=== PATIENT | female | born 1960 | race Two or more races ===

== ENCOUNTER 2020-06-17 13:31 | Outpatient (REF) | payer OTHER, SELFPAY ==
--- NOTE | 2020-06-17 13:37 | MM_ITS ---
EXAMINATION: MM SCREENING DIGITAL BREAST TOMOSYNTHESIS, BILATERAL CLINICAL INFORMATION: Screening. Asymptomatic. The lifetime risk of breast cancer based on the Tyrer-Cuzick Model is 9%. COMPARISON: Mammography: 12/06/2017, outside exam 06/09/2016 ([facility]). TECHNIQUE: Digital breast tomosynthesis is performed in both the craniocaudal and mediolateral oblique views along with computer-aided detection (CAD). Synthesized 2D images are generated from the tomosynthesis. FINDINGS: The breasts are almost entirely fatty (ACR BI-RADS breast composition Category a). There are no significant masses, abnormal calcifications, or other abnormalities. Background stromal densities are stable. The axilla and skin contours are unremarkable. MM/MM tomosynthesis screening BI IMPRESSION: No mammographic evidence of malignancy. ASSESSMENT: BI-RADS 1: Negative RECOMMENDATION: Routine annual mammography screening. This patient's information was entered into a reminder system with a target due date for their next mammogram.
== END 2020-06-17 13:32 | disposition home or self-care (01) ==
LOC: HO.MAMMO 13:31
PROVIDERS: PCP Internal Medicine; Visit Provider Internal Medicine
DX: Z12.31 Encounter for screening mammogram for malignant neoplasm of breast (principal)
CPT/HCPCS: 77063; 77067

== ENCOUNTER 2020-11-18 11:05 | Outpatient (REF) | payer OTHER, SELFPAY ==
--- NOTE | ~2020-11-18 | US_ITS ---
EXAMINATION: US VENOUS WITH DOPPLER UPPER EXTREMITY, LEFT CLINICAL INFORMATION: Pain COMPARISON: None TECHNIQUE: Ultrasound of the upper extremity is performed using compression sonography and color and pulse Doppler flow with assessment of augmentation of flow. There is also imaging and Doppler assessment of the jugular and subclavian veins. Spectral analysis with color-flow imaging is performed. FINDINGS: Respiratory variation, normal compression, and augmented flow are noted throughout the upper extremity including the axillary, brachial, cubital, and radial and ulnar veins. There is normal flow in the internal jugular and subclavian veins. There is no visible deep or superficial thrombophlebitis. US/US venous duplex UE LT IMPRESSION: No DVT demonstrated in the left upper extremity.
== END 2020-11-18 11:06 | disposition home or self-care (01) ==
LOC: HO.US 11:05
PROVIDERS: Absent Provider Internal Medicine; PCP Internal Medicine; Visit Provider Internal Medicine
DX: M79.602 Pain in left arm (principal)
CPT/HCPCS: 93971

== ENCOUNTER 2020-12-01 07:46 | Outpatient (REF) | payer OTHER, SELFPAY ==
--- NOTE | ~2020-12-01 | XR_ITS ---
EXAMINATION: XR ELBOW, LEFT CLINICAL INFORMATION: Pain COMPARISON: None TECHNIQUE: AP, lateral, and oblique views of the left elbow. FINDINGS: Bone alignment is normal. No fracture or dislocation is seen. The joint spaces are normal. There is no joint effusion. There is a small osteophyte projecting over the lateral humeral epicondyle questionable for changes from lateral epicondylitis. XR/XR elbow LT min 3V IMPRESSION: Small osteophyte projecting off the lateral humeral epicondyle questionable for changes of lateral epicondylitis.
== END 2020-12-01 07:47 | disposition home or self-care (01) ==
LOC: HO.HOSX 07:46
PROVIDERS: Visit Provider Physician Assistant
DX: M25.822 Other specified joint disorders, left elbow (principal)
CPT/HCPCS: 73080

== ENCOUNTER 2021-02-11 10:22 | Outpatient (REF) | payer OTHER, SELFPAY ==
--- NOTE | 2021-02-11 10:25 | EMG_ITS ---
This is a 60-year-old woman with a history of diabetes, hypertension, and depression, who has generalized body pain and increase in pain in the last 2 months. CURRENT MEDICATIONS: Metformin, hydrochlorothiazide, Cymbalta, gabapentin, and amlodipine. PHYSICAL EXAMINATION: She is alert and oriented with normal intellectual functions. Cranial nerves II through XII are normal. She is generally tender. Nonfocal examination. IMPRESSION: Fibromyalgia, rule out peripheral neuropathy. Nerve conduction EMG study: Normal electrodiagnostic study of both upper extremities with no evidence of carpal tunnel syndrome or generalized peripheral neuropathy. Normal EMG of the left C5-T1 innervated muscles. MD ANTOINE Sarmiento/BYRON / [id number] MTDD
== END 2021-02-11 10:23 | disposition home or self-care (01) ==
LOC: HO.NEURO 10:22
PROVIDERS: PCP Internal Medicine; Visit Provider Physician Assistant
DX: M25.822 Other specified joint disorders, left elbow (principal)
CPT/HCPCS: 95885; 95913

== ENCOUNTER 2021-02-24 11:33 | Outpatient (REF) | payer OTHER, SELFPAY ==
--- NOTE | ~2021-02-24 | XR_ITS ---
EXAMINATION: XR WRIST, LEFT CLINICAL INFORMATION: Pain COMPARISON: None TECHNIQUE: Four views of the left wrist. FINDINGS: The bones and soft tissues are normal. No fracture. Alignment is anatomic with normal joint spaces. No erosions or abnormal soft tissue calcifications. XR/XR wrist LT min 3V IMPRESSION: Normal left wrist.
== END 2021-02-24 11:34 | disposition home or self-care (01) ==
LOC: HO.XRAY 11:33
PROVIDERS: PCP Internal Medicine; Visit Provider Internal Medicine
DX: M25.532 Pain in left wrist (principal)
CPT/HCPCS: 73110

== ENCOUNTER → 2021-02-27 12:56 | Outpatient (BNVA) | payer OTHER, SELFPAY | PROVIDERS: Visit Provider Physician Assistant ==

== ENCOUNTER → 2021-04-03 09:52 | Outpatient (BNVA) | payer OTHER, SELFPAY | PROVIDERS: PCP Internal Medicine; Visit Provider Nurse Practitioner Family ==

== ENCOUNTER → 2021-05-08 10:01 | Outpatient (BNVA) | payer MEDICAID, SELFPAY | PROVIDERS: PCP Internal Medicine; Visit Provider Nurse Practitioner Family | DX: M79.7 Fibromyalgia (principal); M35.3 Polymyalgia rheumatica; M53.3 Sacrococcygeal disorders, not elsewhere classified; E11.9 Type 2 diabetes mellitus without complications; I10 Essential (primary) hypertension; E78.5 Hyperlipidemia, unspecified; Z88.8 Allergy status to other drugs, medicaments and biological substances; Z91.013 Allergy to seafood; Z79.52 Long term (current) use of systemic steroids | CPT/HCPCS: 99212 ==

== ENCOUNTER 2022-01-13 10:50 | Outpatient (REF) | payer MEDICAID, SELFPAY ==
[2022-01-13 11:47] LABS: Estimated Average Glucose 114 mg/dL; Hemoglobin A1c % 5.6 %
[2022-01-13 12:24] LABS: Anion Gap 12 (12-20); Blood Urea Nitrogen 26 mg/dL (9-16); Calcium 9.8 mg/dL (8.4-10.2); Carbon Dioxide 28 mmol/L (22-29); Chloride 106 mmol/L (96-108); Estimated Glomerular Filt Rate > 60; Glucose Random 76 mg/dL (60-115); Potassium 4.2 mmol/L (3.3-5.1); Sodium 142 mmol/L (135-145)
[2022-01-13 12:44] LABS: Folate 8.2 ng/mL (> or = 4.0); Vitamin B12 411 pg/mL (200-900)
[2022-01-13 12:53] LABS: Erythrocyte Sedimentation Rate 8 MM/HR (0-20)
== END 2022-01-13 10:51 | disposition home or self-care (01) ==
LOC: HO.LAB 10:50
PROVIDERS: PCP Internal Medicine; Visit Provider Psychiatry & Neurology Neurology
DX: G62.9 Polyneuropathy, unspecified (principal)
CPT/HCPCS: 36415; 80048; 82550; 82607; 82746; 83036; 85652; 86140

== ENCOUNTER 2023-09-02 09:05 | Outpatient (REF) | payer MEDICARE, MEDICAID, SELFPAY ==
[2023-09-02 12:05] LABS: Alanine Aminotransferase 29 U/L (0-31); Albumin Level 4.1 g/dL (3.5-5.0); Alkaline Phosphatase 87 U/L (39-117); Anion Gap 15 (12-20); Aspartate Amino Transferase 19 U/L (5-31); Bilirubin Total 0.6 mg/dL (0.0-1.0); Blood Urea Nitrogen 14 mg/dL (9-16); Calcium 9.8 mg/dL (8.4-10.2); Carbon Dioxide 28 mmol/L (22-29); Chloride 104 mmol/L (96-108); Cholesterol 153 mg/dL (<200); Estimated Glomerular Filt Rate > 60; Glucose Random 103 mg/dL (60-115); HDL Cholesterol 54 mg/dL (>40); LDL Cholesterol Calculated 78 mg/dL (<100); Magnesium 1.8 mg/dL (1.6-2.6); Potassium 3.9 mmol/L (3.3-5.1); Sodium 143 mmol/L (135-145); Total Protein 7.3 g/dL (6.5-8.0); Triglycerides 106 mg/dL (<150)
[2023-09-02 12:32] LABS: Folate 13.1 ng/mL (> or = 4.0); Vitamin B12 590 pg/mL (200-900)
== END 2023-09-02 09:06 | disposition home or self-care (01) ==
LOC: HO.HHCL 09:05
PROVIDERS: Visit Provider Nurse Practitioner Family
DX: Z00.00 Encounter for general adult medical examination without abnormal findings (principal); E78.2 Mixed hyperlipidemia; R79.0 Abnormal level of blood mineral; E11.00 Type 2 diabetes mellitus with hyperosmolarity without nonketotic hyperglycemic-hyperosmolar coma (NKHHC)
CPT/HCPCS: 36415; 80053; 80061; 82607; 82746; 83735

== ENCOUNTER 2023-09-29 08:41 | Outpatient (REF) | payer MEDICARE, SELFPAY | END 2023-09-29 08:42 | disposition home or self-care (01) | LOC: HO.MAMMO 08:41 | PROVIDERS: PCP Nurse Practitioner Family; Visit Provider Nurse Practitioner Family | DX: Z12.31 Encounter for screening mammogram for malignant neoplasm of breast (principal) | CPT/HCPCS: 77063; 77067 ==

== ENCOUNTER → 2023-09-29 09:00 | Outpatient (BNV) | payer MEDICARE, SELFPAY | PROVIDERS: PCP Nurse Practitioner Family; Visit Provider Radiology Diagnostic Radiology | DX: Z12.31 Encounter for screening mammogram for malignant neoplasm of breast (principal) | CPT/HCPCS: 77063; 77067 ==

== ENCOUNTER 2024-05-01 08:53 | Outpatient (AMB) | payer MEDICARE, SELFPAY ==
--- NOTE | 2024-05-01 08:48 | MHC.OFFVIS ---
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 No complaints. Last Pap/HPV ? Last Mammogram was BI-RADS 1 in 10/11 Last Colonoscopy was 1 and half years ago at [facility] History Hyperlipidemia Fibromyalgia Tinea versicolor Depression Gastroesophageal reflux Vitiligo Hypertension Diabetes Surgical History Hx of tubal ligation Family History Father HTN (hypertension) Mother HTN (hypertension) Diabetes Sister Colon cancer Paternal Aunt Breast cancer Social History Household Members: Significant Other and Children Housing: House Alcohol intake: current Alcohol intake frequency: holidays/special occasions only Patient Tobacco Use Status: Never used Tobacco Current occupational status: unemployed Sexual orientation: Straight/Heterosexual Gender identity: Female Female Reproductive History Menstrual Menopause type: natural Age of menopause: 52 Total pregnancies: 3 Full term: 3 Number of Living Children: 3 Date of Mammogram: 09/29/23 Review of Systems Const All systems reviewed & are unremarkable except as noted in HPI and below Card Reports as per HPI Resp Reports as per HPI GI Reports as per HPI and Reports no additional complaints Reports as per HPI Physical Exam Vital Signs: Last Vital Signs BP 130/86 05/01/24 08:54 BMI result Body Mass Index 31.8 Const General: cooperative, healthy appearing and comfortable Chest Chest palpation & inspection: normal inspection of the chest and normal palpation of entire chest wall Breast/axilla inspection: normal inspection of the breasts and normal inspection of the axillae Breast/axilla palpation: normal palpation of the breasts, normal palpation of the axillae and no axillary lymphadenopathy Resp Effort & Inspection: normal respiratory effort Auscultation: clear to auscultation bilaterally Percussion: percussion normal Cardio Palpation: normal PMI Rate: regular rate Rhythm: regular rhythm Heart sounds: no murmurs and no rubs Peripheral pulses: Peripheral pulses 2+ throughout GI Inspection: Yes normal to inspection Palpation (GI): Soft to palpation, nontender, no guarding, not rigid and No hepatosplenomegaly present Percussion: Yes normal to percussion Auscultation: normal bowel sounds Rectal Exam - Female: deferred General: Yes bladder normal to palpation External Female Exam: No lesion Speculum Exam - Vagina: normal appearance of the vagina, normal palpation, normal vaginal discharge and not erythematous Speculum Exam - Cervix: normal appearance of the cervix and normal palpation Bimanual exam- vagina & uterus: normal bimanual exam, normal palpation, uterine size normal, bladder normal to palpation, consistency normal and normal palpation Bimanual Exam- Adnexa, other: normal adnexae, no masses and no tenderness Assessment & Plan Assessment & Plan (1) Well woman exam: Code(s): Z01.419 - Encounter for gynecological examination (general) (routine) without abnormal findings Category: Medical Plan: Co testing done. Counseled the patient about the recommended dietary allowance of 1200 mg of Calcium & 600 IU of vitamin D. Instructions given the patient to schedule next screening Mammogram in 10/12 The patient was instructed to perform monthly self-breast exams and schedule annual exam in a year. All questions answered and the patient verbalized understanding. Coding Level of Care Code New Pt Prev Care 40-64y(03904) Diagnoses Well woman exam Z01.419
[2024-05-01 08:54] VITALS: BP 130/86; BMI 31.8
== END 2024-05-01 09:20 | disposition home or self-care (01) ==
PROVIDERS: PCP Nurse Practitioner Family; Visit Provider Obstetrics & Gynecology
DX: Z01.419 Encounter for gynecological examination (general) (routine) without abnormal findings (principal)
CPT/HCPCS: 99386

== ENCOUNTER 2024-05-01 08:53 | Outpatient (REF) | payer MEDICARE, SELFPAY ==
[2024-05-01 13:48] LABS: HPV 16,18/45 See PAP report
== END 2024-05-01 08:54 | disposition home or self-care (01) ==
LOC: HO.LNP 08:53
PROVIDERS: PCP Nurse Practitioner Family; Visit Provider Obstetrics & Gynecology
DX: Z01.419 Encounter for gynecological examination (general) (routine) without abnormal findings (principal)
CPT/HCPCS: 87624; 88175; 99386

== ENCOUNTER 2024-06-15 09:57 | Outpatient (REF) | payer MEDICARE, SELFPAY ==
[2024-06-15 12:28] LABS: Anion Gap 12 (12-20); Blood Urea Nitrogen 12 mg/dL (9-16); Calcium 8.9 mg/dL (8.4-10.2); Carbon Dioxide 28 mmol/L (22-29); Chloride 105 mmol/L (96-108); Cholesterol 212 mg/dL (<200); Estimated Glomerular Filt Rate > 60; Glucose Random 112 mg/dL (60-115); HDL Cholesterol 45 mg/dL (>40); LDL Cholesterol Calculated 119 mg/dL (<100); Potassium 3.6 mmol/L (3.3-5.1); Sodium 141 mmol/L (135-145); TSH reflex Free T4 2.98 uIU/mL (0.32-4.0); Triglycerides 243 mg/dL (<150)
[2024-06-15 12:41] LABS: Folate 13.6 ng/mL (> or = 4.0); Vitamin B12 379 pg/mL (200-900)
[2024-06-15 12:42] LABS: Reflex LDLD? No
== END 2024-06-15 09:58 | disposition home or self-care (01) ==
LOC: HO.HHCL 09:57
PROVIDERS: Visit Provider Internal Medicine
DX: I10 Essential (primary) hypertension (principal); E78.2 Mixed hyperlipidemia; M35.3 Polymyalgia rheumatica
CPT/HCPCS: 36415; 80048; 80061; 82607; 82746; 84443

== ENCOUNTER 2024-10-04 09:08 | Outpatient (REF) | payer MEDICARE, SELFPAY ==
--- OUTSIDE RECORDS SUMMARY | 2024-10-04 10:02 | XMS_ITS | Clinical Summary ---
Author Organization [employer] Address [address] [facility] [address] [place] [address] Care Team Providers Care Bag Sewer Name Role Phone Justine Buenrostro MD Primary Care Provider + Allergies Active Allergy Reactions Criticality Noted Date Comments Anselmo Inhibitors Cough 12/12/2018 Celecoxib Hives 08/17/2023 Shellfish Allergy 10/31/2023 Medications albuterol (2.5 MG/3ML) 0.083% nebulizer solution Inhale 3 mL every 8 (eight) hours. 022 Active gabapentin (Neurontin) 600 MG tabletIndications: Fibromyalgia TAKE 2 TABLETS BY MOUTH AT BEDTIME 60 tablet 3 023 Active EPINEPHrine (Epipen) 0.3 MG/0.3ML injection syringeIndications :Allergic reaction, subsequent encounter INJECT 0.3MG ONE TIME IF NEEDED FOR ANAPHYLAXIS FOR UP TO 1 DOSE. INJECT INTO UPPER LEG. CALL 911 AFTER USE. 2 each 1 024 Active FreeStyle lancetsIndications :Type 2 diabetes mellitus with hyperosmolarity without coma, without long-term current use of insulin ([facility]) 1 each by Other route in the morning. 100 each 3 024 Active Aspirin Low Dose 81 MG EC tabletIndications: Type 2 diabetes mellitus with unspecified complications (CMS/HCC) TOME JOLENE TABLETA (81 MG) POR VIA ORAL EN LA MANANA 90 tablet 1 024 Active glucose blood (OneTouch Verio) test stripIndications:T ype 2 diabetes mellitus with hyperosmolarity without coma, without long-term current use of insulin (CMS/HCC) USE TO TEST BLOOD SUGAR EVERY MORNING 100 each 11 024 2024 Active Blood Glucose Monitoring Suppl (CityblisTouch Verio) w/Device kitIndications:Typ e 2 diabetes mellitus with hyperosmolarity without coma, without long-term current use of insulin ([facility]) USE TO TEST BLOOD SUGAR EVERY MORNING 1 kit Active OneTouch Delica Lancets 33G miscIndications:Ty pe 2 diabetes mellitus with hyperosmolarity without coma, without long-term current use of insulin ([facility]) USE TO TEST BLOOD SUGAR EVERY MORNING 100 each 11 Active hydroCHLOROthiazid e (HYDRODiuril) 50 MG tablet TAKE 1 TABLET BY MOUTH EVERY DAY 90 tablet 1 Active cetirizine (ZyrTEC) 10 MG tablet TAKE 1 TABLET BY MOUTH EVERY DAY 90 tablet 1 Active Omeprazole 20 MG tablet delayed-release Take 1 tablet (20 mg) by mouth Once per day. 90 tablet Active Breo Ellipta 200-25 MCG/ACT aerosol powder Inhale 1 Inhalation Once per day. Active atorvastatin (Lipitor) 20 MG tablet Take 1 tablet (20 mg) by mouth at bedtime. TOME JOLENE TABLETA TODOS LOS CUBA 30 tablet 11 Active tiZANidine (Zanaflex) 4 MG tablet Take 1 tablet (4 mg) by mouth at bedtime. 30 tablet 025 2024 Active acetaminophen (Tylenol 8 Hour) 650 MG ER tablet Take 1 tablet (650 mg) by mouth every 8 (eight) hours if needed for mild pain or moderate pain. Do not crush, chew, or split. 30 tablet 025 2024 Active losartan (Cozaar) 100 MG tablet Take 1 tablet (100 mg) by mouth Once per day. 30 tablet 3 Active metFORMIN (Glucophage) 500 MG tablet TAKE 1 TABLET BY MOUTH TWICE A DAY 180 tablet 1 Active losartan (Cozaar) 100 MG tablet Take 1 tablet by mouth at bed time. 022 2024 Discontinued(R eorder (will not trigger notification to Pharmacy)) predniSONE (Deltasone) 5 MG tablet TOME JOLENE TABLETA TODOS LOS D CON ALIMENTO 023 2024 Discontinued(T herapy completed) amLODIPine (Norvasc) 10 MG tablet TOME JOLENE TABLETA TODOS LOS CUBA 90 tablet 1 023 2024 Discontinued(N on-compliance) atorvastatin (Lipitor) 10 MG tablet TOME JOLENE TABLETA TODOS LOS CUBA 90 tablet 1 024 2024 Discontinued(R eorder (will not trigger notification to Pharmacy)) metFORMIN (Glucophage) 500 MG tablet TOME 1 TABLETA POR VIA ORAL DOS VECES [place] 180 tablet 1 024 2024 Discontinued Active Problems Problem Noted Date Diagnosed Date Sprain of groin 09/14/2024 Assessment & Plan (09/14/2024 3:19 PM EDT): Referred to PT Apply heat to affected area and take Tylenol as needed Chronic bilateral low back pain with right-sided sciatica 09/14/2024 Assessment & Plan (09/14/2024 3:16 PM EDT): Most 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 Follow-up in 3 to 4 months or earlier as needed Advised to come to acupuncture clinic Polymyalgia rheumatica 06/15/2024 Assessment & Plan (06/15/2024 10:39 AM EST): Probably uncontrolled, she sees Rheumatology, new referral sent. She was previously on Prednisone, may need to be on MTS or other biological agent. FU with Rheumatology. Type 2 diabetes mellitus wit h hyperglycemia, without long-term current use of insulin 06/15/2024 Assessment & Plan (09/14/2024 3:15 PM EDT): Controlled. Last A1c on 05/2024 was at goal. Continue on metformin Counseled re more frequent low calorie/carb meals. Check fgstk 1X daily Encouraged physical activity as tolerated. FU in 3 to 4 months months. Asthma 10/31/2023 Assessment & Plan (09/14/2024 3:13 PM EDT): She is doing well on Breo inhaler. Use albuterol as needed has exacerbation, declined COVID immunization, otherwise influenza and other adult immunizations are up-to-date. Follow-up with me in 6 months Assessment & Plan (06/15/2024 2:23 PM EST): Seems to be controlled, she should be on Breo only, as per allergy office. FU w resource development director Cervical pain (neck) 10/31/2023 Foot pain 10/31/2023 Mixed anxiety depressive disorder 10/31/2023 Overview (10/31/2023): Depression Care plan up dated--- 04/05/12 Assessment & Plan (09/14/2024 3:19 PM EDT): PHQ-9 is 8, she declined psychotherapy referral. We discussed importance of increased exercise, healthy lifestyle and coping mechanisms with anxiety and depression. She will continue gabapentin nightly for anxiety and insomnia in 2 months and states she was started SSRIs/SNRIs like venlafaxine or duloxetine had a good profile with patient with fibromyalgia. Patient has crisis number, she feels safe at home and is able to reach out for safety. Chronic depression 10/31/2023 Allergic reaction 08/17/2023 Assessment & Plan (11/07/2023 7:09 PM EDT): -epipen prescribed for emergent use should she experience such reaction again -referral to resource development director placed for testing -patient advised discontinue use of celebrex and contract prescribing provider for alternative pain management -ED precautions reviewed Vitiligo 11/16/2018 Hyperlipidemia 01/03/2018 Assessment & Plan (09/14/2024 3:17 PM EDT): Last LDL was at goal. Continue Atorvastatin 20 mg, FU lipids in 6 months and add medications for TG if needed Recommended moderate amount of exercise and increase consumption of fruit, vegetables, fish and high fiber foods. Should decrease consumption of highly saturated fats or trans fats. Assessment & Plan (06/15/2024 9:36 AM EST): Last LDL was at goal. Continue Atorvastatin, FU lipids in August 2024. Recommended moderate amount of exercise and increase consumption of fruit, vegetables, fish and high fiber foods. Should decrease consumption of highly saturated fats or trans fats. Hypopigmentation 01/03/2018 Fibromyalgia 10/31/2017 Gastroesophageal reflux disease 10/31/2017 Assessment & Plan (06/15/2024 10:44 AM EST): Advised to have small infraction meals, weight reduction. Use Omeprazole PRN only, discussed with her the potential side effects including vitamin deficiencies. Check vitamin B levels. Major depressive disorder 10/31/2017 Pityriasis versicolor 10/31/2017 Seasonal allergies 10/31/2017 HTN (hypertension), benign 09/12/2017 Assessment & Plan (09/14/2024 3:14 PM EDT): Uncontrolled, she is off amlodipine and losartan. I will restart losartan 100 mg only and follow-up BP in 4 to 6 weeks. Continue HCTZ, will add amlodipine if needed at next appointment Advised regarding weight reduction, cut down on soda and sugary drinks, increase exercise Assessment & Plan (06/15/2024 10:41 AM EST): Most likely uncontrolled, will FU in 3-4 weeks with labs. Continue Amlodipine + hydrochlorothiazide. Recommended to decrease soda and sugary beverage consumption, increase protein intake with meals (at least 1 portion of protein with each meal) to assist with satiety, increase dietary fiber. Recommended at least 150 min/week of moderate intensity exercise. Resolved Problems Problem Noted Date Diagnosed Date Resolved Date Type 2 diabetes mellitus wit h hyperosmolarity without coma, without long-term current use of insulin 09/12/2017 06/15/2024 Encounters Date Type Department Care Team Description 10/02/2024 Telephone [facility] [address] [place] [address] Justine Buenrostro MD December10/01/2024 Telephone [facility] [address] [place] [address] Justine Buenrostro MD Durable Medical Equipment 09/19/2024 Refill [facility] [address] [place] [phone] Justine Buenrostro MD 09/14/2024 10:30 AM EDT Office Visit [address] [address] Justine Buenrostro MD HTN (hypertension), benign (Primary Dx); Type 2 diabetes mellitus with hyperglycemia, without long-term current use of insulin ([facility]); Mixed hyperlipidemia; Mixed anxiety depressive disorder; Chronic bilateral low back pain with right-sided sciatica; Sprain of groin, initial encounter; Mild intermittent asthma without complication 09/14/2024 Travel 09/13/2024 Telephone [facility] [address] [place] [phone] Justine Buenrostro MD Chart prep 09/05/2024 Patient Outreach [address] [address] Justine Buenrostro MD Pre-visit Planning ((Unable to reach for PVP screening, LVM)) from Last 3 Months Immunizations Name Administration Dates Next Due Hep B, adult 08/31/2023,08/28/2019 INFLUENZA INJECTABLE QUADRIV ALANT CCIIV4 MDCK Multi-dose vial 03/21/2019 Influenza injectable quadriv alent preservative free 03/07/2018,03/07/2018,04/07/2017 Influenza, IIV3, injectable 04/15/2014, 3,03/16/2012 Influenza, seasonal, injecta ble, preservative free 06/15/2024 Pneumococcal Conjugate PCV 20 08/31/2023 Pneumococcal Polysaccharide PPSV23 04/03/2019 RSV Bivalent 09/13/2023 Tdap 04/03/2019,08/13/2011 Zoster, Recombinant 11/15/2023,09/13/2023 Family History Medical History Relation Name Comments COPD Father Breast cancer Father's Sister Stroke Maternal Grandmother Colon cancer Mother's Sister Throat cancer Paternal Grandfather Colon cancer Sister Relation Name Status Comments Father Father's Sister Maternal Grandmother Mother's Sister Paternal Grandfather Sister Social History Tobacco Use Types Packs/Day Years Used Date Smoking Tobacco: Never Smokeless Tobacco: Never Tobacco Cessation:Counseling Given: Not Answered Alcohol Use Standard Drinks/Week Comments Not Currently 0 (1 standard drink = 0.6 oz pur e alcohol) socially Depression Answer Date Recorded Patient Health Questionnaire-9 Score 8 09/14/2024 Patient Health Questionnaire-9 Score 8 09/14/2024 Last PHQ-9: Questionnaire Data Not on file 0 09/14/2024 Housing Stability Answer Date Recorded What is your housing situation today? I have ke ortega 04/11/[address] you li ve. Do you have problems with any of the following? None of the above 04/11/2023 Food Insecurity Answer Date Recorded Within the past 12 months, y ou worried that your food would run out before you got money to buy more: Never True 04/11/2023 Within the past 12 months,th e food you bought just didn't last and you didn't have enough money to get more: Never True Transportation Answer Date Recorded In the past 12 months, has l ack of transportation kept you from medical appts, meetings, work or from getting things needed for daily living? No 04/11/2023 Utilities Answer Date Recorded In the past 12 months, has t he electric, gas, oil or water company threatened to shut off services in your home? No 04/11/2023 Depression Answer Date Recorded Patient Health Questionnaire-2 Score 2 09/14/2024 Comments No Sex and Gender Information Value Date Recorded Sex Assigned at Female 04/19/2022 10:24 AM EDT Legal Sex Female 10:24 AM EDT Gender Identity Female 04/19/2022 10:24 AM EDT Sexual Orientation Choose not to disclose 2021 10:24 AM EDT Last Filed Vital Signs Vital Sign Reading Time Taken Comments Blood Pressure 160/100 09/14/2024 11:05 AM EDT Pulse 89 09/14/2024 10:37 AM EDT Temperature 36.3 ??C (97.4 ??F) 09/14/2024 10:37 AM E DT Respiratory Rate 12 06/15/2024 9:16 AM EST Oxygen Saturation 98% 09/14/2024 10:37 AM EDT Inhaled Oxygen Concentration - - Weight 83.6 kg (184 lb 4 oz) 09/14/2024 10:37 AM EDT Height 167.6 cm (5' 6 ) 09/14/2024 10:37 AM EDT Body Mass Index 29.74 09/14/2024 10:37 AM EDT Plan of Treatment Upcoming Encounters Date Type Department Care Team (Late st Contact Info) Description 12/31/2024 10:00 AM EDT Office Visit [facility] [address] [place] [address] Nikki Alejandra, OD [address] [place] [address] 01/01/2025 9:45 AM EDT Office Visit [facility] [address] [place] [address] Justine Buenrostro MD [address] [place] [address] Health Maintenance Due Date Last Done Comments CT Colonography 1960 FIT DNA/Cologuard 1960 FIT 1960 FOBT 1960 HIV Screening 1960 Sigmoidoscopy 1960 Eye Exam 1972 Alcohol/Substance Use Screening 1974 Hepatitis C Screening 1980 Diabetes: Urine Protein Screening 09/09/2023 09/08/2022, 02/24/2021, 03/06/2020 Hepatitis B Vaccines (3 of 3 - 19+ 3-dose series) 10/26/2023 08/31/2023, 08/28/2019 COVID-19 Vaccine ( season) 2024 11/03/2020, 10/06/2020 SDOH Screening 08/30/2024 08/31/2023 Diabetes: Foot Exam 11/20/2024 11/21/2023, 11/21/2023, 11/21/2023, Additional history exists Diabetes: Hemoglobin A1C 12/14/202406/15/ 024, 08/31/2023, 09/08/2022, Additional history exists Colonoscopy 03/11/2025 03/11/2022 Colorectal Cancer Screening 03/11/2025 Lipid Panel 06/15/2025 06/15/2024, 08/18, 09/08/2022, Additional history exists Depression Screening 09/14/2025 09/14/2024, 09/15/19 Tobacco Screening 09/14/2025 09/14/2024 Mammogram 09/28/2025 09/29/2023, 05/21, 12/09/2017 DTaP/Tdap/Td Vaccines (3 - Td or Tdap) 04/03/2029 04/03/2019, 08/13/2011 Cervical Cancer Screening 05/01/2029 HPV/Cotest 05/01/2029 Pap Smear 05/01/2029 05/01/2024 Pneumococcal Vaccine: 50+ Years Completed 08/31/2023, 04/03/2019 RSV Patients and Patients Aged 60 years or older Completed 09/13/2023 Zoster Vaccines Completed 11/15/2023, 09/13/2023 Influenza Vaccine Completed 06/15/2024, , 03/07/2018, Additional history exists HIB Vaccines Aged Out No longer eligi ble based on patient's age to complete this topic HPV Vaccines Aged Out No longer eligi ble based on patient's age to complete this topic Hepatitis A Vaccines Aged Out No long er eligible based on patient's age to complete this topic IPV Vaccines Aged Out No longer eligi ble based on patient's age to complete this topic Meningococcal Vaccine Aged Out No amanuel rudy eligible based on patient's age to complete this topic RSV under 20 months Aged Out No longe r eligible based on patient's age to complete this topic Rotavirus Vaccines Aged Out No longer eligible based on patient's age to complete this topic Procedures Procedure Name Priority Date/Time Associated Diagnosis Comments POCT GLUCOSE Routine 09/14/2024 10:39 AM EDT Type 2 diabetes mellitus with hyperglycemia, without long-term current use of insulin ([facility]) LIPID PANEL WITH REFLEX TO DIRECT LDL Routine 06/15/2024 9:58 AM EST Mixed hyperlipidemia POCT GLYCATED HEMOGLOBIN, TOTAL Routine 06/15/2024 9:17 AM EST Type 2 diabetes mellitus without complication, without long-term current use of insulin (CMS/HCC) PAP SMEAR Routine 05/01/2024 9:18 AM EST BI MAMMOGRAM SCREENING TOMOSYNTHESIS BILATERAL Routine 09/29/2023 9:04 AM EDT ALBUMIN, RANDOM URINE W/O CREATININE Routine 09/08/2022 11:32 AM EDT Type 2 diabetes mellitus with hyperosmolarity without coma, without long-term current use of insulin ([facility]) HM COLONOSCOPY Routine 03/11/2022 2:56 PM EDT from Last 3 Months or Most Recently Relevant to Health Maintenance Results * POCT Glucose (09/14/2024 10:39 AM EDT) Glucose Blood, POC 123 60 - 200 mg/dL QC Media Lot # [id number] Lot# Expiration Date 101,425 Blood Capillary blood specimen / Unknown 09/14/2024 10:39 AM EDT Justine Buenrostro MD POINT OF CARE TEST ENTER /EDIT ORDERABLES Final Result * (ABNORMAL) Lipid Panel with Reflex to Direct LDL (06/15/2024 9:58 AM EST) Triglycerides 243(H) <150 mg/dL [facility] Comment:Desirable Triglyceri de: less than 150 mg/dLBorderline High Triglyceride 150-199 mg/dLHigh Triglyceride: 200-499 mg/dLVery High Triglyceride: greater than or equal to 5OO mg/dL Cholesterol 212(H) <200 mg/dL [facility] Comment:Desirable Cholestero l: less than 200 mg/dLBorderline High Cholesterol: 200-239 mg/dLHigh Cholesterol: greater than 239 mg/dL LDL Cholesterol Calculated 119(H) <100 mg/dL [facility] Comment:Desirable LDL: less than 100 mg/dLNear Optimal/Above Optimal LDL: 110- 129 mg/dLBorderline High LDL: 130-159 mg/dLHigh LDL: 160-189 mg/dLVery High LDL: greater than or equal to 190 mg/dL HDL Cholesterol 45 >40 mg/dL [facility] Comment:Desirable HDL: great er than 40 mg/dL Note: This HDL assay may give artificially low results in patients with liver disease. Blood 06/15/2024 9:58 AM EST 06/15/2024 11:35 AM EST us Justine Buenrostro MD LAB BLOOD ORDERABLES Fin al Result [facility] [address] [place] [phone] * POCT HGB A1C (06/15/2024 9:17 AM EST) Hemoglobin A1C 6.0 4.0 - 6.0 % QC Media Lot # [id number] Lot# Expiration Date ,036 Blood 06/15/2024 9:17 AM EST Justine Buenrostro MD POINT OF CARE TEST ENTER /EDIT ORDERABLES Final Result * Pap Smear (05/01/2024 9:18 AM EST) 05/01/2024 9:18 AM EST 05/01/2024 1:40 PM EST Narrative [facility] - 05/07/2024 10:13 AM EST ----- ------- Name: MosesKlaudia Lary ? Age/Sex: 63/F ? : 1960 Unit#: [id number] ?? Attend Dr: Raghu Benz MD ?Re05/01/24 ?Status: DEP REF ? Location: HO.LNP ?Disch: ? ----- ------- SPEC : [id number] ?RECD: 05/01/24 ? STATUS: ??SOUT ? REQ NUM: [id number] ? DELANEY: 05/01/24 ? SUBM DR: Raghu Benz MD ? ENTERED: ??05/01/24 ?SP TYPE: Pap Smr ?OTHR DR: Sharita Ferro UNDERWRITING INTERN ? ORDERED: ??Pap Smear ? Interpretation ?? Satisfactory for evaluation. ?? Negative for intraepithelial lesion or malignancy. ?? No endocervical cells seen. ? HPV High Risk: ??Negative ? HPV Genotyping 16: ??Negative ?? HPV Genotyping 18: ??Negative ?Clinical Information LMP: Postmenopausal Previous PAP test: Three years ago, Unknown findings ? Material Received ?? ThinPrep-Cervical Copies To: ?? Sharita Ferro UNDERWRITING INTERN ?? [address] ?? [place] [address] ?? [phone] ?? Raghu Benz MD ?? [facility] ?? [address] ?? [place] [address] ?? [phone] ----- ------- Signed (signature on file) KJ Jerry (ASCP) 05/07/24 1013 ? ----- ------- ? END OF REPORT ? us Generic External Data Provider LAB CYTOLOGY IAN WILSON Final Result [facility] [address] [place] [phone] [phone] * BI Mammogram Screening Tomosynthesis Bilateral (09/29/2023 9:04 AM EDT) Anatomical Region Laterality Modality Breast Bilateral Mammography 09/29/2023 9:04 AM EDT Narrative 10/26/2023 9:58 AM EDT ? [facility] ? [address] ?[place] [address] ? Mammography Report ? Signed ? Patient: Moses,Klaudia M ?MR#: [id number] ?? [id number] ? : 1960 ?Acct:[id number] ? Age/Sex: 63 / F ?ADM Date: 09/29/23 ? Loc: HO.MAMMO ? Attending Dr: Sharita Ferro UNDERWRITING INTERN ? Ordering Physician: Sharita Ferro UNDERWRITING INTERN ?Results: 1Negativ ?? e ? Date of Service: 09/29/23 ?Follow Up: 1 Year From Orig ?? inal Mammogram ? Procedure(s): MM tomosynthesis screening BI ?? Accession Number(s): [id number] ? cc: Sharita Ferro UNDERWRITING INTERN ? EXAMINATION: ?? MM SCREENING DIGITAL BREAST TOMOSYNTHESIS, BILATERAL ? CLINICAL INFORMATION: ? Screening. Asymptomatic. ? COMPARISON: ?? Mammography: This study is compared with prior exams dating back to ?? 2018. ? TECHNIQUE: ?? Digital breast tomosynthesis is performed in both the craniocaudal and ?? mediolateral oblique views along with computer-aided detection (CAD). ?? Synthesized 2D images are generated from the tomosynthesis. ? FINDINGS: ?? The breasts are almost entirely fatty (ACR BI-RADS breast composition ?? Category a). ? There are no significant masses, abnormal calcifications, or other ?? abnormalities. ? MM/MM tomosynthesis screening BI ?? IMPRESSION: ?? No mammographic evidence of malignancy. ? ASSESSMENT: ? BI-RADS BI-RADS 1 - Negative ? RECOMMENDATION: ?? Routine annual mammography screening. ? 1 year F/U ? This examination should not preclude the clinical evaluation of a ?? suspicious palpable abnormality. ? This patient's information was entered into a reminder system with a ?? target due date for their next mammogram. ? Dictated By: ?Angeli Vance MD ? Signed By: ?<Electronically signed by Angeli Vance MD in OV> ? 10/26/23954 ? DD/ 0904 ? TD/TT: ? Head Doffer: ? Procedure Note Dondejuanisrraelwoodyter, Image - 10/26/2023 [facility] [address] [place] [address] Mammography Report Signed Patient: Klaudia Lopes MMR#: [id number] : 1960Acct:[id number] Age/Sex: 63 / FADM Date: 09/29/23 Loc: HO.MAMMO Attending Dr: Sharita Ferro UNDERWRITING INTERN Ordering Physician: Sharita Ferro NPResults: 1Negativ e Date of Service: 09/29/23Follow Up: 1 Year From Orig inal Mammogram Procedure(s): MM tomosynthesis screening BI Accession Number(s): [id number] cc: Sharita Ferro NP EXAMINATION: MM SCREENING DIGITAL BREAST TOMOSYNTHESIS, BILATERAL CLINICAL INFORMATION: Screening. Asymptomatic. COMPARISON: Mammography: This study is compared with prior exams dating back to 2018. TECHNIQUE: Digital breast tomosynthesis is performed in both the craniocaudal and mediolateral oblique views along with computer-aided detection (CAD). Synthesized 2D images are generated from the tomosynthesis. FINDINGS: The breasts are almost entirely fatty (ACR BI-RADS breast composition Category a). There are no significant masses, abnormal calcifications, or other abnormalities. MM/MM tomosynthesis screening BI IMPRESSION: No mammographic evidence of malignancy. ASSESSMENT: BI-RADS BI-RADS 1 - Negative RECOMMENDATION: Routine annual mammography screening. 1 year F/U This examination should not preclude the clinical evaluation of a suspicious palpable abnormality. This patient's information was entered into a reminder system with a target due date for their next mammogram. Dictated By: Angeli Vance MD Signed By: <Electronically signed by Angeli Vance MD in OV> 10/26/23954 DD/ 3 TD/TT: Head Doffer: Sharita Ferro [facility] BI PROCEDURES Final Result * Albumin, Random Urine W/O Creatinine (09/08/2022 11:32 AM EDT) Albumin, Urine 0.3 See Note: mg/dL [facility] [place] [facility] Comment: Reference Range: Reference Range Not established [facility] [place] [facility] Comment: The ADA defines abnormalities in albumin excretion as follows: Albuminuria Category ? Result (mcg/mg creatinine) Normal to Mildly increased ?<30 Moderately increased ?30-299 Severely increased ?> OR = 300 The ADA recommends that at least two of three specimens collected within a 3-6 month period be abnormal before considering a patient to be within a diagnostic category. Urine Urine specimen obtained by clean catch procedure / Unknown 09/08/2022 11:32 AM EDT 09/08/2022 11:33 AM EDT [facility] URINE ORDERABLES Final Resu lt [facility] [address] [place] [address] [facility] [place] [facility] [address] [place] [phone] * Hm Colonoscopy (03/11/2022 2:56 PM EDT) Colonoscopy Normal Normal Narrative [facility] - 03/11/2022 2:56 PM EDT Recommended 3 year follow up ( [facility]) unable to find path results updated per provider notes us Historical Provider HEALTH MAINTENANCE Edited Result - Final from Last 3 Months or Most Recently Relevant to Health Maintenance Insurance Care Teams Bag Sewer Relationship Specialty Start Date End Date Justine Buenrostro MD [address] [place] [address] PCP - General Internal Medicine 02/21/24
--- OUTSIDE RECORDS SUMMARY | 2024-10-04 10:02 | XMS_ITS | Encounter Summary ---
Author Organization [employer] Address 75 [facility] 7t [place] [address] Care Team Providers Care Clamshell Operator Name Role Phone Sharita Ferro Primary Care Provider [phone] Justine Buenrostro MD Primary Care Provider + Encounter Details Date Type Department Care Team (Late Contact Info) Description 12/01/2022 Abstract [facility] MEDICINE [address] [place], [place] [phone] Sharita Ferro FNP [address] [place] [address] Social History Tobacco Use Types Packs/Day Years Used Date Smoking Tobacco: Never Smokeless Tobacco: Never Alcohol Use Standard Drinks/Week Comments Not Currently 0 (1 standard drink = 0.6 oz pur e alcohol) Depression Answer Date Recorded Patient Health Questionnaire-9 Score 5 09/08/2022 Depression Answer Date Recorded Patient Health Questionnaire-2 Score 1 09/08/2022 Comments Unknown Sex and Gender Information Value Date Recorded Sex Assigned at Female 04/19/2022 10:24 AM EDT Legal Sex Female 10:24 AM EDT Gender Identity Female 04/19/2022 10:24 AM EDT Sexual Orientation Choose not to disclose 2021 10:24 AM EDT documented as of this encounter Plan of Treatment Upcoming Encounters Date Type Department Care Team (Late Contact Info) Description 12/31/2024 10:00 AM EDT Office Visit [facility] OPTOMETRY [address] [place], [place] [phone] Nikki Alejandra, OD 230 [place], [place] [phone] 01/01/2025 9:45 AM EDT Office Visit [facility] MEDICINE [address] [place] [address] Justine Buenrostro MD 230 [place] [address] documented as of this encounter Procedures Procedure Name Priority Date/Time Associated Diagnosis Comments COLONOSCOPY Routine 03/11/2022 2:56 PM EDT documented in this encounter Results * Hm Colonoscopy (03/11/2022 2:56 PM EDT) Colonoscopy Normal Normal Narrative Mine Ashton - 03/11/2022 2:56 PM EDT Recommended 3 year follow up ( [facility] [employer]) unable to find path results updated per provider notes us Historical Provider HEALTH MAINTENANCE Edited Result - Final documented in this encounter Visit Diagnoses Not on filedocumented in this encounter Additional Health Concerns Assessment Noted Time PHQ-9 Depression Total Score: 5 09/09/19 23 10:36 AM EDT documented as of this encounter Care Teams Clamshell Operator Relationship Specialty Start Date End Date Sharita Ferro FNP [address] [place] [address] PCP - General Family Medicine 05/17/22 02/20/24 Justine Buenrostro MD [address] [place] [address] PCP - General Internal Medicine 02/21/24 documented as of this encounter
--- OUTSIDE RECORDS SUMMARY | 2024-10-04 10:02 | XMS_ITS | Clinical Summary ---
Author Organization [facility] Address [address] [place] [address] Phone Care Team Providers Care Application Security Developer Name Role Phone Unavailable Primary Care Provider Unavailabl e Allergies No known active allergies Medications semaglutide (WEGOVY) 0.25 mg/0.5 mL injection pen Inject 0.25 mg under the skin every 7 (seven) days. Active aspirin 81 mg EC tablet Take 1 tablet (81 mg total) by mouth 1 (one) time each day. Active fluticasone propionate (FLONASE) 50 mcg/actuation nasal spray Administer 1 spray into each nostril 1 (one) time each day. Shake gently. Before first use, prime pump. After use, clean tip and replace cap. 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 04/17/2024 GERD (gastroesophageal reflux disease) Asthma 04/17/2024 Social History Tobacco Use Types Packs/Day Years Used Date Smoking Tobacco: Never Assessed Comments Unknown Sex and Gender Information Value Date Recorded Sex Assigned at Not on file Legal Sex Female 7:32 PM EST Gender Identity Not on file Sexual Orientation Not on file Plan of Treatment Health Maintenance Due Date Last Done Comments Breast Cancer Screening 1962 Diabetes: Annual GFR (Glomer ular Filtration Rate) 1962 Diabetes: Annual Foot Exam 1972 Diabetes: Annual Retina Eye Exam 1972 DTaP,Tdap,and Td Vaccines (1 - Tdap) 1981 Pneumococcal Vaccine: 50+ Ye ars (1 of 2 - PCV) 1981 Pneumococcal Vaccine: Pediat rics (0 to 5 Years) and At-Risk Patients (6 to 64 Years) (1 of 2 - PCV) 1981 Cervical Cancer Screening: P ap Smear 08/19/1983 Zoster Vaccines (1 of 2) 2012 Cholesterol Screening (Lipid Panel) 05/22/2022 Colorectal Cancer Screening: Colonoscopy 05/22/2022 Depression Screening 05/22/2022 HIV Screening 05/22/2022 Hepatitis C Screening 05/22/2022 Medicare Annual Wellness Visit 05/22/2022 Social Influencers of Health Screening 05/22/2022 RSV Immunization Adult Patie nts (1 - Risk 60-74 years 1-dose series) 2022 COVID-19 Vaccine ( - 2023-2 5 season) 2024 Diabetes: Annual Urine Albumin-Creatinine Ratio (uACR) 04/17/2024 Diabetes: Blood Sugar Contro l Test (HGBA1C) 04/17/2024 Hypertension/CHF/CAD Annual BMP Blood Test 04/17/2024 Influenza Vaccine (Season Ended) 2025 HIB Vaccines Aged Out No longer eligi ble based on patient's age to complete this topic HPV Vaccines Aged Out No longer eligi ble based on patient's age to complete this topic Hepatitis A Vaccines Aged Out No long er eligible based on patient's age to complete this topic Hepatitis B Vaccines Aged Out No long er eligible based on patient's age to complete this topic IPV Vaccines Aged Out No longer eligi ble based on patient's age to complete this topic MMR Vaccines Aged Out No longer eligi ble based on patient's age to complete this topic Meningococcal ACWY Vaccine Aged Out N o longer eligible based on patient's age to complete this topic Meningococcal B Vaccine Aged Out No l onger eligible based on patient's age to complete this topic RSV Immunization Patients Un mindy 20 months Aged Out No longer eligible b ased on patient's age to complete this topic Varicella Vaccines Aged Out No longer eligible based on patient's age to complete this topic Insurance [employer] MEDICARE
--- OUTSIDE RECORDS SUMMARY | 2024-10-04 10:02 | XMS_ITS | Encounter Summary ---
Author Organization [employer] Address [address] [facility] 7t [place] [address] Care Team Providers Care Appraiser Name Role Phone Justine Buenrostro MD Primary Care Provider + Reason for Visit * Reason Comments Med Refill Encounter Details Date Type Department Care Team (Late st Contact Info) Description 03/01/2024 Refill [facility]BILE [facility]ACCINE CLINIC 230 [place] [address] Name, MD Hesham [address] [place], [place] [phone] Type 2 diabetes mellitus with unspecified complications (CMS/HCC) Social History Tobacco Use Types Packs/Day Years Used Date Smoking Tobacco: Never Smokeless Tobacco: Never Alcohol Use Standard Drinks/Week Comments Not Currently 0 (1 standard drink = 0.6 oz pur e alcohol) socially Depression Answer Date Recorded Patient Health Questionnaire-9 Score 3 08/31/2023 Patient Health Questionnaire-9 Score 3 08/31/2023 Last PHQ-9: Questionnaire Data Not on file 0 08/31/2023 Housing Stability Answer Date Recorded What is [...] Answer Date Recorded Patient Health Questionnaire-2 Score 0 08/31/2023 Comments Unknown Sex and Gender Information Value [...] Description 12/31/2024 10:00 AM EDT Office Visit [facility] OPTOMETRY [address] [place] [address] Justyn, Nikki, OD 230 [place] [address] 01/01/2025 9:45 AM EDT Office Visit [facility] MEDICINE [address] [place] [address] Justine Buenrostro MD [address] [place] [address] documented as of this encounter Visit Diagnoses Diagnosis Type 2 diabetes mellitus with unspecified complications (CMS/HCC) documented in this encounter Additional Health Concerns Assessment Noted Time PHQ-9 Depression Total Score: 3 08/31/19 24 4:25 PM EDT documented as of this encounter Care Teams Appraiser Relationship Specialty Start Date End Date Justine Buenrostro MD [address] [place] [address] PCP - General Internal Medicine 02/21/24 documented as of this encounter
--- OUTSIDE RECORDS SUMMARY | 2024-10-04 10:02 | XMS_ITS | Encounter Summary ---
Author Organization [employer] Address [address] [facility] 7t [place] [address] Care Team Providers Care Kindergarten Prep Teacher Name Role Phone Justine Buenrostro MD Primary Care Provider + Reason for Visit * Reason Onset Date Comments December recall 10/02/2024 Encounter Details Date Type Department Care Team ([facility] st Contact Info) Description 10/02/2024 Telephone [facility] MEDICINE [address] [place] [address] Justine Buenrostro MD 230 [place], [place] [phone] December recall Social History Tobacco Use Types Packs/Day Years [...] AM EDT documented as of this encounter Miscellaneous Notes * Telephone Encounter - Elvia Jones MA - 10/02/2024 2:35 PM EDT Telephone call to patient to schedule a recall appointment. No answer, Left voicemail to return call to clinic.. Recall letter sent. Visit type: Follow up Appointment notes: fu BP/pain Month due: December With: Porter Please schedule appointment above if patient returns call documented in this encounter Plan of Treatment Upcoming Encounters Date Type Department Care Team (Late st Contact Info) Description 12/31/2024 10:00 AM EDT Office Visit [facility] OPTOMETRY [address] [place] [address] Nikki Alejandra, OD 230 [place] [address] 01/01/2025 9:45 AM EDT Office Visit [facility] MEDICINE 230 [place] [address] Justine Buenrostro MD 230 [place] [address] documented as of this encounter Visit Diagnoses Not on filedocumented in this encounter Additional Health Concerns Assessment Noted Time PHQ-9 Depression Total Score: 8 09/15/19 25 11:03 AM EDT documented as of this encounter Care Teams Kindergarten Prep Teacher Relationship Specialty Start Date End Date Justine Buenrostro MD 230 [place] [address] PCP - General Internal Medicine 02/21/24 documented as of this encounter
--- OUTSIDE RECORDS SUMMARY | 2024-10-04 10:02 | XMS_ITS | Encounter Summary ---
Author Organization [employer] Address [address] [facility] 7t [place] [address] Care Team Providers Care Patient Access Registrar Name Role Phone Sharita Ferro Primary Care Provider [phone] Justine Buenrostro MD Primary Care Provider + Reason for Visit * Reason Comments Med Refill Encounter Details Date Type Department Care Team ([facility] st Contact Info) Description 12/27/2023 Refill [facility] MEDICINE [address] [place], [place] [phone] Sharita Ferro FNP 230 [place] [address] Type 2 diabetes mellitus with hyperosmolarity without coma, without long-term current use of insulin ([facility]) Social History Tobacco Use Types Packs/Day Years [...] Description 12/31/2024 10:00 AM EDT Office Visit [facility] OPTOMETRY [address] [place] [address] Nikki Alejandra, OD 230 [place] [address] 01/01/2025 9:45 AM EDT Office Visit [facility] MEDICINE [address] [place] [address] Justine Buenrostro MD 230 [place] [address] documented as of this encounter Visit Diagnoses Diagnosis Type 2 diabetes mellitus with hyperosmolarity without coma, without long-term current use of insulin ([facility]) documented in this encounter Additional Health Concerns Assessment Noted Time PHQ-9 Depression Total Score: 3 08/31/19 24 4:25 PM EDT documented as of this encounter Care Teams Patient Access Registrar Relationship Specialty Start Date End Date Sharita Ferro FNP [address] [place] [address] PCP - General Family Medicine 05/17/22 02/20/24 Justine Buenrostro MD [address] [place] [address] PCP - General Internal Medicine 02/21/24 documented as of this encounter
--- OUTSIDE RECORDS SUMMARY | 2024-10-04 10:02 | XMS_ITS | Encounter Summary ---
Author Organization [employer] Address [address] [facility] 7t [place] [address] Care Team Providers Care Manufacturing Assembler Name Role Phone Sharita Ferro Primary Care Provider [phone] Justine Buenrostro MD Primary Care Provider + Reason for Visit * Reason Onset Date Comments Med Refill 12/02/2022 Encounter Details Date Type Department Care Team (Late st Contact Info) Description 12/02/2022 Telephone [facility] MED[facility] [address] [place], [place] [phone] Sharita Ferro FNP [address] [place] [address] Med Refill Social History Tobacco Use Types Packs/Day Years [...] encounter Miscellaneous Notes * Telephone Encounter - Bridgette James - 12/02/2022 3:32 PM EDT Tc from pt requesting medication refill for Tramadol 50 mg documented in this encounter Plan of Treatment Upcoming Encounters Date Type Department Care Team (Late st Contact Info) Description 12/31/2024 10:00 AM EDT Office Visit [facility] OPTOMETRY [address] [place] [address] Nikki Alejandra, OD 230 [place] [address] 01/01/2025 9:45 AM EDT Office Visit [facility] [address] [place] [address] Justine Buenrostro MD 230 [place] [address] documented as of this encounter Visit Diagnoses Not on filedocumented in this encounter Additional Health Concerns Assessment Noted Time PHQ-9 Depression Total Score: 5 09/09/19 23 10:36 AM EDT documented as of this encounter Care Teams Manufacturing Assembler Relationship Specialty Start Date End Date Sharita Ferro FNP 230 [place] [address] PCP - General Family Medicine 05/17/22 02/20/24 Justine Buenrostro MD [address] [place] [address] [phone] PCP - General Internal Medicine 02/21/24 documented as of this encounter
--- OUTSIDE RECORDS SUMMARY | 2024-10-04 10:03 | XMS_ITS | Encounter Summary ---
Author Organization [employer] Address [address] [facility] 7t [place] [address] Care Team Providers Care Paint Line Production Supervisor Name Role Phone KelvinSharita meneses GILES Primary Care Provider [phone] Justine Buenrostro MD Primary Care Provider + Reason for Visit * Reason Comments Med Refill Encounter Details Date Type Department Care Team ([facility] st Contact Info) Description 05/03/2023 Refill [facility] CHC MED & PEDS [address] [place], [place] [phone] Name, MD Hesham 230 [place] [address] Social History Tobacco Use Types Packs/Day Years Used Date Smoking Tobacco: Never Smokeless Tobacco: Never Alcohol Use Standard Drinks/Week Comments Not Currently 0 (1 standard drink = 0.6 oz pur e alcohol) Depression Answer Date Recorded Patient Health Questionnaire-9 Score 5 09/08/2022 Housing Stability Answer Date Recorded What is your housing situation today? I have ke oretga 04/11/[address] you li [...] Description 12/31/2024 10:00 AM EDT Office Visit [facility] OPTOMETRY [address] [place] [address] Justyn, Nikki, OD 230 [place] [address] 01/01/2025 9:45 AM EDT Office Visit [facility] MEDICINE 230 [place] [address] Justine Buenrostro MD 230 [place] [address] documented as of this encounter Visit Diagnoses Not on filedocumented in this encounter Additional Health Concerns Assessment Noted Time PHQ-9 Depression Total Score: 5 09/09/19 23 10:36 AM EDT documented as of this encounter Care Teams Paint Line Production Supervisor Relationship Specialty Start Date End Date Sharita Ferro FNP [address] [place] [address] PCP - General Family Medicine 05/17/22 02/20/24 Justine Buenrostro MD [address] [place] [address] PCP - General Internal Medicine 02/21/24 documented as of this encounter
--- OUTSIDE RECORDS SUMMARY | 2024-10-04 10:03 | XMS_ITS | Encounter Summary ---
Author Organization [employer] Address [address] [facility] 7t [place] [address] Care Team Providers Care Curriculum And Assessment Coordinator Name Role Phone KelvinSharita meneses GILES Primary Care Provider [phone] Justine Buenrostro MD Primary Care Provider + Reason for Visit * Reason Comments Med Refill Encounter Details Date Type Department Care Team ([facility] st Contact Info) Description 05/15/2023 Refill [facility] CHC MED & PEDS [address] [place], [place] [phone] Name, MD Hesham [address] [place] [address] Social History Tobacco Use Types Packs/Day Years [...] Description 12/31/2024 10:00 AM EDT Office Visit [facility] OPTOMETRY [address] [place] [address] Justyn, Nikki, OD 230 [place] [address] 01/01/2025 9:45 AM EDT Office Visit [facility] MEDICINE 230 [place] [address] Justine Buenrostro MD [address] [place] [address] documented as of this encounter Visit Diagnoses Not on filedocumented in this encounter Additional Health Concerns Assessment Noted Time PHQ-9 Depression Total Score: 5 09/09/19 23 10:36 AM EDT documented as of this encounter Care Teams Curriculum And Assessment Coordinator Relationship Specialty Start Date End Date Sharita Ferro FNP [address] [place] [address] PCP - General Family Medicine 05/17/22 02/20/24 Justine Buenrostro MD [address] [place] [address] PCP - General Internal Medicine 02/21/24 documented as of this encounter
--- OUTSIDE RECORDS SUMMARY | 2024-10-04 10:03 | XMS_ITS | Encounter Summary ---
Author Organization [employer] Address [address] [facility] 7t [place] [address] Care Team Providers Care Paver Operator Name Role Phone Justine Buenrostro MD Primary Care Provider + Reason for Visit * Reason Onset Date Comments Durable Medical Equipment 10/01/2024 Encounter Details Date Type Department Care Team (Late st Contact Info) Description 10/01/2024 Telephone [facility] MEDICINE [address] [place], [place] [phone] Justine Buenrostro MD [address] [place], [place] [phone] Durable Medical Equipment Social History Tobacco Use Types Packs/Day Years [...] encounter Miscellaneous Notes * Telephone Encounter - Adwoa Kahn RN - 10/03/2024 12:17 PM EDT See message below. Provider in agreement and signature obtained for DME script; confirmation fax received and scanned to chart. See message below. DME script generated and to be placed on provider desk for signature. Tc from Monica with [facility] requesting Blood Pressure Monitor. To be sent to: [facility] [phone] P. [phone] * Telephone Encounter - Siri Ojeda - 10/01/2024 9:52 AM EDT Tc from Monica with [facility] requesting Blood Pressure Monitor. To be sent to: [facility] [phone] P. [phone] documented in this encounter Plan of Treatment Upcoming Encounters Date Type Department Care Team (Late st Contact Info) Description 12/31/2024 10:00 AM EDT Office Visit [facility] OPTOMETRY [address] [place], [place] [phone] Justyn, Nikki, OD [address] [place] [address] 01/01/2025 9:45 AM EDT Office Visit [facility] MEDICINE [address] [place] [address] Justine Buenrostro MD [address] [place] [address] documented as of this encounter Visit Diagnoses Not on filedocumented in this encounter Additional Health Concerns Assessment Noted Time PHQ-9 Depression Total Score: 8 09/15/19 25 11:03 AM EDT documented as of this encounter Care Teams Paver Operator Relationship Specialty Start Date End Date Justine Buenrostro MD [address] [place] [address] [phone] PCP - General Internal Medicine 02/21/24 documented as of this encounter
--- OUTSIDE RECORDS SUMMARY | 2024-10-04 10:03 | XMS_ITS | Encounter Summary ---
Author Organization [employer] [facility] Address [address] [facility] 7t [place] [address] Care Team Providers Care Pbx Repairer Name Role Phone Grant Mcguire MD Primary Care Provider Sharita Wright Primary Care Provider [phone] Justine Buenrostro MD Primary Care Provider + Encounter Details Date Type Department Care Team (Latest Contact Info) Description 02/12/2019 Abstract [facility] Dental, Provider, DDS Social History Tobacco Use Types Packs/Day Years [...] Description 12/31/2024 10:00 AM EDT Office Visit [facility] OPTOMETRY [address] [place] [address] Nikki Alejandra, OD 230 [place] [address] 01/01/2025 9:45 AM EDT Office Visit [facility] MEDICINE 230 [place] [address] Justine Buenrostro MD [address] [place] [address] documented as of this encounter Visit Diagnoses Not on filedocumented in this encounter Care Teams Pbx Repairer Relationship Specialty Start Date End Date Grant Mcguire MD PCP - General Family Medicine 03/30/19 05/16/22 Sharita Ferro FNP [address] [place] [address] PCP - General Family Medicine 05/17/22 02/20/24 Justine Buenrostro MD [address] [place] [address] PCP - General Internal Medicine 02/21/24 documented as of this encounter
== END 2024-10-04 09:09 | disposition home or self-care (01) ==
LOC: HO.MAMMO 09:08
PROVIDERS: PCP Internal Medicine; Visit Provider Nurse Practitioner Family
DX: Z12.31 Encounter for screening mammogram for malignant neoplasm of breast (principal)
CPT/HCPCS: 77063; 77067

== ENCOUNTER → 2024-10-04 09:15 | Outpatient (BNV) | payer MEDICARE, SELFPAY | PROVIDERS: PCP Internal Medicine; Visit Provider Internal Medicine | DX: Z12.31 Encounter for screening mammogram for malignant neoplasm of breast (principal) | CPT/HCPCS: 77063; 77067 ==

== ENCOUNTER 2024-11-01 12:11 | Outpatient (REF) | payer MEDICARE, SELFPAY ==
--- NOTE | ~2024-11-01 | XR_ITS ---
CLINICAL HISTORY: LUMBAR RADICULOPATHY --- Additional Notes or Special Instructions: WO 3 views lumbar spine Comparison: None Findings: Normal alignment. No acute fractures or dislocation. Multilevel disc space narrowing and endplate osteophyte formation, as well as facet hypertrophy. IMPRESSION: No acute findings. This document has been electronically signed by: Radha Amato MD on 11/01/2024 16:48:48
--- OUTSIDE RECORDS SUMMARY | 2024-11-01 13:06 | XMS_ITS | Encounter Summary ---
Author Organization [employer] Address [address] [facility] 7t [place] [address] Care Team Providers Care Social Media Marketer Name Role Phone Justine Buenrostro MD Primary Care Provider + Reason for Visit * Reason Comments Med Refill Encounter Details Date Type Department Care Team ([facility] st Contact Info) Description 03/01/2024 Refill [facility]BILE VACCINE CLINIC 230 [place], [place] [phone] Name, MD Hesham [address] [place], [place] [phone] Type 2 diabetes mellitus with unspecified complications [...] 10:00 AM EDT Office Visit [facility] OPTOMETRY [address] [place] [address] Justyn, Nikki, OD 230 [place] [address] 01/01/2025 9:45 AM EDT Office Visit [facility] MEDICINE [address] [place] [address] Justine Buenrostro MD 230 [place] [address] documented as of this encounter Visit Diagnoses Diagnosis Type 2 diabetes mellitus with unspecified complications (CMS/HCC) documented in this encounter Additional Health Concerns Assessment Noted Time PHQ-9 Depression Total Score: 3 08/31/19 24 4:25 PM EDT documented as of this encounter Care Teams Social Media Marketer Relationship Specialty Start Date End Date Justine Buenrostro MD 230 [place] [address] PCP - General Internal Medicine 02/21/24 documented as of this encounter
--- OUTSIDE RECORDS SUMMARY | 2024-11-01 13:06 | XMS_ITS | Encounter Summary ---
Author Organization [employer] Address [address] [facility] 7t [place] [address] Care Team Providers Care Propagation Manager Name Role Phone Sharita Ferro Primary Care Provider [phone] Justine Buenrostro MD Primary Care Provider + Reason for Visit * Reason Comments Med Refill Encounter Details Date Type Department Care Team (Late st Contact Info) Description 12/27/2023 Refill [facility] MED[facility] [address] [place], [place] [phone] Sharita Ferro FNP [address] [place] [address] Type 2 diabetes mellitus with hyperosmolarity without coma, without long-term current use of insulin ([facility]) Social History Tobacco Use Types Packs/Day [...] Description 12/31/2024 10:00 AM EDT Office Visit [facility] OPTOMETRY [address] [place] [address] Nikki Alejandra, OD 230 [place] [address] 01/01/2025 9:45 AM EDT Office Visit [facility] MED[facility] [address] [place] [address] Justine Buenrostro MD 230 [place] [address] documented as of this encounter Visit Diagnoses Diagnosis Type 2 diabetes mellitus with hyperosmolarity without coma, without long-term current use of insulin ([facility]) documented in this encounter Additional Health Concerns Assessment Noted Time PHQ-9 Depression Total Score: 3 08/31/19 24 4:25 PM EDT documented as of this encounter Care Teams Propagation Manager Relationship Specialty Start Date End Date Sharita Ferro FNP [address] [place] [address] PCP - General Family Medicine 05/17/22 02/20/24 Justine Buenrostro MD [address] [place] [address] PCP - General Internal Medicine 02/21/24 documented as of this encounter
--- OUTSIDE RECORDS SUMMARY | 2024-11-01 13:06 | XMS_ITS | Clinical Summary ---
Author Organization [address] [facility] Address [address] [place] [address] Phone Care Team Providers Care Health Care Sanitary Technician Name Role Phone Unavailable Primary Care Provider [...] Date Diagnosed Date HTN (hypertension) 04/17/2024 Diabetes (CMS/[facility] V24, CMS/HCC V28) 04/17/2024 Class 1 drug-induced [...]
--- OUTSIDE RECORDS SUMMARY | 2024-11-01 13:07 | XMS_ITS | Encounter Summary ---
Author Organization [employer] Address [address] [facility] 7t [place] [address] Care Team Providers Care Candy Butcher Name Role Phone Justine Buenrostro MD Primary Care Provider + Encounter Details Date Type Department Care Team (Late st Contact Info) Description 10/18/2024 Telephone [facility] MEDICINE [address] [place], [place] [phone] Justine Buenrostro MD 230 [place], [place] [phone] Social History Tobacco Use Types Packs/Day Years [...] Description 12/31/2024 10:00 AM EDT Office Visit [facility] OPTOMETRY [address] [place] [address] Justyn, Nikki, OD 230 [place] [address] 01/01/2025 9:45 AM EDT Office Visit [facility] MEDICINE [address] [place] [address] Justine Buenrostro MD 230 [place] [address] documented as of this encounter Visit Diagnoses Not on filedocumented in this encounter Additional Health Concerns Assessment Noted Time PHQ-9 Depression Total Score: 8 09/15/19 25 11:03 AM EDT documented as of this encounter Care Teams Candy Butcher Relationship Specialty Start Date End Date Justine Buenrostro MD [address] [place] [address] PCP - General Internal Medicine 02/21/24 documented as of this encounter
--- OUTSIDE RECORDS SUMMARY | 2024-11-01 13:07 | XMS_ITS | Encounter Summary ---
Author Organization [employer] Address 75 [facility] 7t [place] [address] Care Team Providers Care Asbestos Abatement Worker Name Role Phone Grant Mcguire MD Primary Care Provider Sharita Wright Primary Care Provider [phone] Justine Buenrostro MD Primary Care Provider + Encounter Details Date Type Department Care Team (Latest Contact Info) Description 02/12/2019 Abstract [facility] CONVERSIONS Dental, Provider, DDS Social History [...] Description 12/31/2024 10:00 AM EDT Office Visit [facility] OPTOMETRY [address] [place] [address] Nikki Alejandra, OD 230 [place] [address] 01/01/2025 9:45 AM EDT Office Visit [facility] MEDICINE 230 [place] [address] Jsutine Buenrostro MD 230 [place] [address] documented as of this encounter Visit Diagnoses Not on filedocumented in this encounter Care Teams Asbestos Abatement Worker Relationship Specialty Start Date End Date Grant Mcguire MD PCP - General Family Medicine 03/30/19 05/16/22 Sharita Ferro FNP 230 [place] [address] PCP - General Family Medicine 05/17/22 02/20/24 Justine Buenrostro MD [address] [place] [address] PCP - General Internal Medicine 02/21/24 documented as of this encounter
--- OUTSIDE RECORDS SUMMARY | 2024-11-01 13:07 | XMS_ITS | Clinical Summary ---
Author Organization [employer] Address [address] [facility] 7t [place] [address] Care Team Providers Care Maintenance Mechanic Supervisor Name Role Phone Justine Buenrostro MD Primary [...] coma, without long-term current use of insulin ([facility]) 1 each by Other route in the [...] coma, without long-term current use of insulin ([facility]/HCC) USE TO TEST BLOOD SUGAR EVERY MORNING 100 each 11 024 2024 Active Blood Glucose Monitoring Suppl (OneTouch Verio) w/Device kitIndications:Typ e 2 diabetes mellitus with hyperosmolarity without coma, without long-term current use of insulin ([facility]) USE TO TEST BLOOD SUGAR EVERY MORNING 1 kit Active OneTouch Delica Lancets 33G miscIndications:Ty pe 2 diabetes mellitus with hyperosmolarity without coma, without long-term current use of insulin ([facility]) USE TO TEST BLOOD SUGAR EVERY MORNING [...] TODOS [place] 30 tablet 11 Active acetaminophen (Tylenol 8 Hour) 650 MG [...] TWICE A DAY 180 tablet 1 Active tiZANidine (Zanaflex) 4 MG tablet TAKE 1 TABLET BY MOUTH AT BEDTIME 90 tablet Active tiZANidine (Zanaflex) 4 MG tablet Take 1 tablet (4 mg) by mouth at bedtime. 30 tablet 025 2024 Discontinued Active Problems Problem Noted Date [...] only, as per allergy office. FU w electrician deck Cervical pain (neck) 10/31/2023 Foot pain 10/31/2023 [...] she experience such reaction again -referral to electrician deck placed for testing -patient advised discontinue use [...] Encounters Date Type Department Care Team Description 10/18/2024 Telephone [facility] [address] [place] [address] Justine Buenrostro MD 10/16/2024 Orders Only [facility] [address] [place] [address] [place] 10/06/2024 Refill [facility] [address] [place] [address] Justine Buenrostro MD 10/05/2024 Telephone [facility] [address] [place] [address] Justine Buenrostro MD Durable Medical Equipment 10/04/2024 Orders Only [facility] [address] [place], [place] [phone] Sharita Ferro FNP 10/02/2024 Telephone [facility] [address] [place] [address] Justine Buenrostro MD December recall 10/01/2024 Telephone [facility] [address] [place] [address] Justine Buenrostro MD Durable Medical Equipment 09/19/2024 Refill [facility] [address] [place] [address] Justine Buenrostro MD 09/14/2024 10:30 AM EDT Office Visit [address] [address] Justine Buenrostro MD HTN (hypertension), benign (Primary Dx); Type 2 diabetes mellitus with hyperglycemia, without long-term current use of insulin ([facility]/H[facility]); Mixed hyperlipidemia; Mixed anxiety depressive disorder; Chronic bilateral low back pain with right-sided sciatica; Sprain of groin, initial encounter; Mild intermittent asthma without complication 09/14/2024 Travel 09/13/[address] [address] Justine Buenrostro MD Chart prep 09/05/2024 Patient Outreach [address] [address] Justine Bunerostro MD Pre-visit Planning ((Unable to reach for PVP screening, LVM)) from Last 3 Months Immunizations Immunization Administration Dates Next Due Hep B, adult [...] 10:00 AM EDT Office Visit [facility] [address] [place] [address] Nikki Alejandra, OD 230 [place] [address] 01/01/2025 9:45 AM EDT Office Visit [facility] [address] [place] [address] Justine Buenrostro MD 230 [place] [address] Health Maintenance Due Date Last Done Comments [...] 09/14/2024, 09/15/19 Tobacco Screening 09/14/2025 09/14/2024 Mammogram 10/04/2025 10/04/2024, 09/18, 06/17/2020, Additional history exists DTaP/Tdap/Td Vaccines (3 - Td or Tdap) 04/03/2029 04/03/2019, 08/13/2011 Cervical Cancer Screening 05/01/2029 HPV/Cotest 05/01/2029 05/01/2024 Pap Smear 05/01/2029 05/01/2024 Pneumococcal Vaccine: 50+ [...] Procedure Name Priority Date/Time Associated Diagnosis Comments BI MAMMOGRAM SCREENING TOMOSYNTHESIS BILATERAL Routine 10/04/2024 9:20 AM EDT POCT GLUCOSE Routine 09/14/2024 10:39 AM EDT Type 2 diabetes mellitus with hyperglycemia, without long-term current use of insulin ([facility]) LIPID PANEL WITH REFLEX TO DIRECT LDL Routine 06/15/2024 9:58 AM EST Mixed hyperlipidemia POCT GLYCATED HEMOGLOBIN, TOTAL Routine 06/15/2024 9:17 AM EST Type 2 diabetes mellitus without complication, without long-term current use of insulin (CMS/HCC) PAP SMEAR Routine 05/01/2024 9:18 AM EST HPV MRNA E6/E7 REFLEX TO HPV 16, 18/45 Routine 05/01/2024 12:00 AM EST ALBUMIN, RANDOM URINE W/O CREATININE Routine 09/08/2022 11:32 AM EDT Type 2 diabetes mellitus with hyperosmolarity without coma, without long-term current use of insulin (CMS/HCC) HM COLONOSCOPY Routine 03/11/2022 2:56 PM EDT from Last 3 Months or Most Recently Relevant to Health Maintenance Results * BI Mammogram Screening Tomosynthesis Bilateral (10/04/2024 9:20 AM EDT) Anatomical Region Laterality Modality Breast Bilateral Mammography 10/04/2024 9:20 AM EDT Narrative 10/13/2024 3:00 PM EDT ? [facility] [place] ? [address] ?[place] [address] ?[phone] ? Mammography Report ? Signed ? Patient: Moses,Klaudia M ?MR#: [id number] ?? [id number] ? : 1960 ?Acct:[id number] ? Age/Sex: 64 / F ?ADM Date: 04/17/25 ? Loc: HO.MAMMO ? Attending : Sharita Ferro MEN'S SWIM COACH ? Ordering Physician: Sharita Ferro MEN'S SWIM COACH ?Results: 1Negativ ?? e ? Date of Service: 10/04/24 ?Follow Up: 1 Year From Orig ?? inal Mammogram ? Procedure(s): MM tomosynthesis screening BI ?? Accession Number(s): [id number] ? cc: Sharita Ferro NP; Justine Buenrostro MD ? EXAMINATION: ?? MM SCREENING DIGITAL BREAST TOMOSYNTHESIS, BILATERAL ? CLINICAL INFORMATION: ? Screening. Asymptomatic. ? COMPARISON: ?? Mammography: Comparison is made with available priors ? TECHNIQUE: ?? Digital breast mammography with tomosynthesis is performed in both the ?? craniocaudal and mediolateral oblique views along with computer-aided ?? detection (CAD). ? FINDINGS: ?? There are scattered areas of fibroglandular density (ACR BI-RADS breast ?? composition Category b). ? There are no significant masses, abnormal [...] due date for their next mammogram. ? Electronically signed by: ??Chelsea Tom DO ??10/13/2024 02:57 PM EDT ?? RP ? Dictated By: ?Chelsea Tom DO ? Signed By: ?<Electronically signed by Chelsea Tom, DO in OV> ? 10/13/24 1457 ? DD/ 0920 ? TD/TT: 10/04/24 0940 ? As400 Programmer Analyst: ? Procedure Note Pipo, Image - 10/13/2024 [facility] [address] [place] [address] Mammography Report Signed Patient: Klaudia Lopes MMR#: [id number] : 1960Acct:[id number] Age/Sex: 64 / FADM Date: 10/04/24 Loc: HO.MAMMO Attending Dr: Sharita Ferro NP Ordering Physician: Sharita Ferro NPResults: 1Negativ e Date of Service: 10/04/24Follow Up: 1 Year From Orig inal Mammogram Procedure(s): MM tomosynthesis screening BI Accession Number(s): [id number] cc: Sharita Ferro MEN'S SWIM COACH; Justine Buenrostro MD EXAMINATION: MM SCREENING DIGITAL BREAST TOMOSYNTHESIS, BILATERAL CLINICAL INFORMATION: Screening. Asymptomatic. COMPARISON: Mammography: Comparison is made with available priors TECHNIQUE: Digital breast mammography with tomosynthesis is performed in both the craniocaudal and mediolateral oblique views along with computer-aided detection (CAD). FINDINGS: There are scattered areas of fibroglandular density (ACR BI-RADS breast composition Category b). There are no significant masses, abnormal calcifications, [...] target due date for their next mammogram. Electronically signed by: Chelsea Tom DO 10/13/2024 02:57 PM EDT Dictated By: Chelsea Tom DO Signed By: <Electronically signed by Chelsea Tom DO in OV> 10/13/24 1457 DD/ 0920 TD/TT: 10/04/24 0940 As400 Programmer Analyst: Sharita Ferro DENTAL CERAMIST HELPER IMG BI PROCEDURES Edited Result - Final * POCT Glucose (09/14/2024 10:39 AM EDT) Glucose Blood, POC 123 60 - 200 mg/dL QC Media Lot # [id number] Lot# Expiration Date 101,425 Blood Capillary blood specimen / Unknown 09/14/2024 10:39 AM EDT us Justine Buenrostro MD POINT OF CARE TEST ENTER /EDIT ORDERABLES Final Result * (ABNORMAL) Lipid Panel with Reflex to Direct LDL (06/15/2024 9:58 AM EST) Triglycerides 243(H) <150 mg/dL [facility] Comment:Desirable Triglyceri de: less than 150 mg/dLBorderline High Triglyceride 150-199 mg/dLHigh Triglyceride: 200-499 mg/dLVery High Triglyceride: greater than or equal to 5OO mg/dL Cholesterol 212(H) <200 mg/dL [facility] Comment:Desirable Cholestero l: less than 200 mg/dLBorderline High Cholesterol: 200-239 mg/dLHigh Cholesterol: greater than 239 mg/dL LDL Cholesterol Calculated 119(H) <100 mg/dL [facility] Comment:Desirable LDL: less than 100 mg/dLNear Optimal/Above Optimal LDL: 110- 129 mg/dLBorderline High LDL: 130-159 mg/dLHigh LDL: 160-189 mg/dLVery High LDL: greater than or equal to 190 mg/dL HDL Cholesterol 45 >40 mg/dL [facility] Comment:Desirable HDL: great er than 40 mg/dL Note: This HDL assay may give artificially low results in patients with liver disease. Blood 06/15/2024 9:58 AM EST 06/15/2024 11:35 AM EST us Justine Buenrostro MD LAB BLOOD ORDERABLES Fin al Result [facility] [address] [place], [place] [phone] * POCT HGB A1C (06/15/2024 9:17 AM EST) Pathologist [facility] Hemoglobin A1C 6.0 4.0 - 6.0 % QC Media Lot # [id number] Lot# Expiration Date [id number] Blood 06/15/2024 9:17 AM EST Justine Buenrostro MD POINT OF CARE TEST ENTER /EDIT ORDERABLES Final Result * Pap Smear (05/01/2024 9:18 AM EST) 05/01/2024 9:18 AM EST 05/01/2024 1:40 PM EST Narrative [facility] - 05/07/2024 10:13 AM EST ----- ------- Name: Klaudia Lopes ? Age/Sex: 63/F ? : 1960 Unit#: [id number] ?? Attend Dr: Raghu Benz MD ?Re05/01/24 ?Status: DEP REF ? Location: HO.LNP ?Disch: ? ----- ------- SPEC : [id number] ?RECD: 05/01/24 ? STATUS: ??SOUT ? REQ NUM: [id number] ? DELANEY: 05/01/24 ? SUBM DR: Raghu Benz MD ? ENTERED: ??05/01/24 ?SP TYPE: Pap Smr ?OTHR DR: Sharita Ferro MEN'S SWIM COACH ? ORDERED: ??Pap Smear ? Interpretation ?? Satisfactory for evaluation. ?? Negative for intraepithelial lesion or malignancy. ?? No endocervical cells seen. ? HPV High Risk: ??Negative ? HPV Genotyping 16: ??Negative ?? HPV Genotyping 18: ??Negative ?Clinical Information LMP: Postmenopausal Previous PAP test: Three years ago, Unknown findings ? Material Received ?? ThinPrep-Cervical Copies To: ?? Sharita Ferro MEN'S SWIM COACH ?? [address] ?? [place] [address] ?? [phone] ?? Raghu Benz MD ?? [facility] ?? [address] [facility] [address] ?? [place] [address] ?? [phone] ----- ------- Signed (signature on file) KJ Jerry (ASCP) 05/07/24 1013 ? ----- ------- ? END OF REPORT ? Generic External Data Provider LAB CYTOLOGY ORDE RABLES Final Result Performing Organization Address [facility] Co de Phone Number [facility] [address] [place] [phone] * HPV mRNA E6/E7 w/Reflex to HPV Genotypes 16, 18/45 (05/01/2024 12:00 AM EST) Historical Provider MD LAB CYTOLOGY ORDERABLES F inal Result Performing Organization Address [facility] de Phone Number [facility] [address] [place] [phone] [phone] * Albumin, Random Urine W/O Creatinine (09/08/2022 11:32 AM EDT) Albumin, Urine 0.3 See Note: mg/dL [facility] Comment: Reference Range: Reference Range Not established [facility] Comment: The ADA defines abnormalities in albumin [...] AM EDT 09/08/2022 11:33 AM EDT Sharita Ferro DENTAL CERAMIST HELPER LAB URINE ORDERABLES Final Resu lt [facility] [address], [place] [address] [facility] [address] [place] [address] * Colonoscopy (03/11/2022 2:56 PM EDT) Colonoscopy Normal Normal Narrative Mine Ashton - 03/11/2022 2:56 PM EDT Recommended 3 year follow up ( [facility]) unable to find path results updated per provider notes Historical Provider HEALTH MAINTENANCE Edited Result - Final from Last 3 Months or Most Recently Relevant to Health Maintenance Insurance Care Teams Maintenance Mechanic Supervisor Relationship Specialty Start Date End Date Justine Buenrostro MD [address] [place] [address] PCP - General Internal Medicine 02/21/24
--- OUTSIDE RECORDS SUMMARY | 2024-11-01 13:07 | XMS_ITS | Encounter Summary ---
Author Organization [employer] Address [address] [facility] [address] 7t [place] [address] Care Team Providers Care Forming Process Worker Name Role Phone Justine Buenrostro MD Primary Care Provider + Encounter Details Date Type Department Care Team (Late st Contact Info) Description 10/16/2024 Orders Only [facility] [address] [place] [address] Mine Ashton Social History Tobacco Use Types Packs/Day Years [...] 10:00 AM EDT Office Visit [facility] OPT[facility] [address] [place], [place] [phone] JustynNikki uriarte, OD 230 [place] [address] 01/01/2025 9:45 AM EDT Office Visit [facility] [address] [place] [address] Justine Buenrostro MD [address] [place] [address] documented as of this encounter Procedures Procedure Name Priority Date/Time Associated Diagnosis Comments HPV MRNA E6/E7 REFLEX TO HPV 16, 18/45 Routine 05/01/2024 12:00 AM EST documented in this encounter Results * HPV mRNA E6/E7 w/Reflex to HPV Genotypes 16, 18/45 (05/01/2024 12:00 AM EST) us Historical Provider LAB CYTOLOGY ORDERABLES F inal Result [facility] [address] [place] [address] [phone] documented in this encounter Visit Diagnoses Not on filedocumented in this encounter Additional Health Concerns Assessment Noted Time PHQ-9 Depression Total Score: 8 09/15/19 25 11:03 AM EDT documented as of this encounter Care Teams Forming Process Worker Relationship Specialty Start Date End Date Justine Buenrostro MD [address] [place], [place] [phone] PCP - General Internal Medicine 9/3/24 documented as of this encounter
--- OUTSIDE RECORDS SUMMARY | 2024-11-01 13:07 | XMS_ITS | Encounter Summary ---
Author Organization [employer] Address 75 [facility] 7t [place] [address] Care Team Providers Care Driver Medic Name Role Phone Sharita Ferro Primary Care Provider [phone] Justine Buenrostro MD Primary Care Provider + Reason for Visit * Reason Onset Date Comments Med Refill 12/02/2022 Encounter Details Date Type Department Care Team (Late st Contact Info) Description 12/02/2022 Telephone [facility] MED[facility] [address] [place], [place] [phone] Sharita Ferro FNP 230 [place] [address] Med Refill Social History Tobacco Use Types [...] Office Visit [facility] OPTOMETRY [address] [place] [address] Nikki Alejandra, OD 230 [place] [address] 01/01/2025 9:45 AM EDT Office Visit [facility] MEDICINE [address] [place] [address] Justine Buenrostro MD 230 [place] [address] documented as of this encounter Visit Diagnoses Not on filedocumented in this encounter Additional Health Concerns Assessment Noted Time PHQ-9 Depression Total Score: 5 09/09/19 23 10:36 AM EDT documented as of this encounter Care Teams Driver Medic Relationship Specialty Start Date End Date Sharita Ferro FNP [address] [place] [address] PCP - General Family Medicine 05/17/22 02/20/24 Justine Buenrostro MD [address] [place] [phone] PCP - General Internal Medicine 02/21/24 documented as of this encounter
--- OUTSIDE RECORDS SUMMARY | 2024-11-01 13:07 | XMS_ITS | Encounter Summary ---
Author Organization [employer] Address 75 [facility] 7t [place] [address] Care Team Providers Care Ampoule Inspector Name Role Phone Sharita Ferro GILES Primary Care Provider [phone] Justine Buenrostro MD Primary Care Provider + Reason for Visit * Reason Comments Med Refill Encounter Details Date Type Department Care Team ([facility] st Contact Info) Description 05/15/2023 Refill [facility] [address] [place], [place] [phone] Name, MD [place] [address] [place] [address] Social History Tobacco Use Types Packs/Day Years [...] 10:00 AM EDT Office Visit [facility] OPTOMETRY [address] [place] [address] Justyn, Nikki, OD 230 [place] [address] 01/01/2025 9:45 AM EDT Office Visit [facility] MED[facility] [address] [place] [address] Justine Buenrostro MD [address] [place] [address] documented as of this encounter Visit Diagnoses Not on filedocumented in this encounter Additional Health Concerns Assessment Noted Time PHQ-9 Depression Total Score: 5 09/09/19 23 10:36 AM EDT documented as of this encounter Care Teams Ampoule Inspector Relationship Specialty Start Date End Date Sharita Ferro FNP [address] [place] [address] PCP - General Family Medicine 05/17/22 02/20/24 Justine Buenrostro MD [address] [place] [phone] PCP - General Internal Medicine 02/21/24 documented as of this encounter
--- OUTSIDE RECORDS SUMMARY | 2024-11-01 13:07 | XMS_ITS | Encounter Summary ---
Author Organization [employer] Address 75 [facility] 7t [place] [address] Care Team Providers Care Shuttle Final Inspector Name Role Phone Sharita Ferro GILES Primary Care Provider [phone] Justine Buenrostro MD Primary Care Provider + Reason for Visit * Reason Comments Med Refill Encounter Details Date Type Department Care Team ([facility] st Contact Info) Description 05/03/[address] [facility] PEDS [address] [place], [place] [phone] Name, MD [place] [address] [place] [address] Social History Tobacco Use Types Packs/Day Years [...] Description 12/31/2024 10:00 AM EDT Office Visit [facility] OPTOMETRY [address] [place] [address] Justny, Nikki, OD 230 [place] [address] 01/01/2025 9:45 AM EDT Office Visit [facility] MEDICINE [address] [place] [address] Justine Buenrostro MD [address] [place] [address] documented as of this encounter Visit Diagnoses Not on filedocumented in this encounter Additional Health Concerns Assessment Noted Time PHQ-9 Depression Total Score: 5 09/09/19 23 10:36 AM EDT documented as of this encounter Care Teams Shuttle Final Inspector Relationship Specialty Start Date End Date Sharita Ferro FNP [address] [place] [phone] PCP - General Family Medicine 05/17/22 02/20/24 Justine Buenrostro MD [address] [place] [address] PCP - General Internal Medicine 02/21/24 documented as of this encounter
--- OUTSIDE RECORDS SUMMARY | 2024-11-01 13:07 | XMS_ITS | Encounter Summary ---
Author Organization [employer] Address [address] [facility] 7t [place] [address] Care Team Providers Care Notching Machine Operator Name Role Phone Sharita Ferro Primary Care Provider [phone] Justine Buenrostro MD Primary Care Provider + Encounter Details Date Type Department Care Team (Late st Contact Info) Description 12/01/2022 Abstract [facility] MEDICINE [address] [place], [place] [phone] Sharita Ferro FNP [address] [place] [address] Social History Tobacco Use Types Packs/Day Years [...] Description 12/31/2024 10:00 AM EDT Office Visit [facility] OPTOMETRY [address] [place], [place] [phone] Justyn, Nikki, OD [address] [place], [place] [phone] 01/01/2025 9:45 AM EDT Office Visit [facility] MEDICINE [address] [place] [address] Justine Buenrostro MD [address] [place] [address] documented as of this encounter Procedures Procedure Name Priority Date/Time Associated Diagnosis Comments COLONOSCOPY Routine 03/11/2022 2:56 PM EDT documented in this encounter Results * Hm Colonoscopy (03/11/2022 2:56 PM EDT) Colonoscopy Normal Normal Narrative Mine [place] - 03/11/2022 2:56 PM EDT Recommended 3 year follow up ( [facility]) unable to find path results updated per provider notes us Historical Provider HEALTH MAINTENANCE Edited Result - Final documented in this encounter Visit Diagnoses Not on filedocumented in this encounter Additional Health Concerns Assessment Noted Time PHQ-9 Depression Total Score: 5 09/09/19 23 10:36 AM EDT documented as of this encounter Care Teams Notching Machine Operator Relationship Specialty Start Date End Date Sharita Ferro FNP [address] [place] [address] PCP - General Family Medicine 05/17/22 02/20/24 Justine Buenrostro MD [address] [place] [address] PCP - General Internal Medicine 02/21/24 documented as of this encounter
== END 2024-11-01 12:12 | disposition home or self-care (01) ==
LOC: HO.XRAY 12:11
PROVIDERS: PCP Internal Medicine; Visit Provider Registered Nurse
DX: M54.16 Radiculopathy, lumbar region (principal)
CPT/HCPCS: 72100

== ENCOUNTER → 2024-11-01 12:17 | Outpatient (BNV) | payer MEDICARE, SELFPAY | PROVIDERS: PCP Internal Medicine; Visit Provider Radiology Diagnostic Radiology | DX: M51.16 Intervertebral disc disorders with radiculopathy, lumbar region (principal) | CPT/HCPCS: 72100 ==

== ENCOUNTER 2025-01-01 10:23 | Outpatient (REF) | payer MEDICARE, SELFPAY ==
--- OUTSIDE RECORDS SUMMARY | 2025-01-01 11:34 | XMS_ITS | Clinical Summary ---
Author Organization [address] [facility] Address [address] [place] [address] Phone Care Team Providers Care Aeronautical Engineering Professor Name Role Phone Unavailable Primary Care Provider [...] Orientation Not on file Plan of Treatment Upcoming Encounters Date Type Department Care Team ([facility] Contact Info) Description 05/01/2025 10:15 AM EST Office Visit Bariatric Surgery - [place] [address] [facility] [address] [place] [address] Sary Boyce PA 175 [facility] [address] [place] [address] Health Maintenance Due Date Last Done Comments Breast Cancer Screening 1962 Diabetes: Annual GFR (Glomer ular Filtration Rate) 1962 Diabetes: Annual Foot Exam 1972 Diabetes: Annual Retina Eye Exam 1972 DTaP,Tdap,and Td Vaccines (1 - Tdap) 1981 Pneumococcal Vaccine: 50+ Ye ars (1 of 2 - PCV) 1981 Cervical [...] Annual BMP Blood Test 04/17/2024 Influenza Vaccine (#1) 2025 HIB Vaccines Aged Out No longer [...]
--- OUTSIDE RECORDS SUMMARY | 2025-01-01 11:34 | XMS_ITS | Encounter Summary ---
Author Organization [employer] Address [address] [facility] 7t [place] [address] Care Team Providers Care Lead Electrical Controls Engineer Name Role Phone Sharita Ferro Primary Care Provider [phone] Justine Buenrostro MD Primary Care Provider + Reason for Visit * Reason Comments Med Refill Encounter Details Date Type Department Care Team ([facility] st Contact Info) Description 12/27/2023 Refill [facility] MEDICINE [address] [place], [place] [phone] Sharita Ferro FNP [address] [place] [address] Type 2 diabetes mellitus with hyperosmolarity without coma, without long-term current use of insulin ([facility]) Social History Tobacco Use Types Packs/Day Years [...] is your housing situation today? I have kecharmaine ortega 04/11/[address] you [...] as of this encounter Plan of Treatment Not on file documented as of this encounter Visit Diagnoses Diagnosis Type 2 diabetes mellitus with hyperosmolarity without coma, without long-term current use of insulin ([facility]) documented in this encounter Additional Health Concerns Assessment Noted Time PHQ-9 Depression Total Score: 3 08/31/19 24 4:25 PM EDT documented as of this encounter Care Teams Lead Electrical Controls Engineer Relationship Specialty Start Date End Date Sharita Ferro FNP [address] [place] [address] PCP - General Family Medicine 05/17/22 02/20/24 Justine Buenrostro MD [address] [place] [address] PCP - General Internal Medicine 02/21/24 documented as of this encounter
[2025-01-01 12:17] LABS: Microalbum/Creatinine Ratio Ur 35.8 ug/mg cr (<30)
== END 2025-01-01 10:24 | disposition home or self-care (01) ==
LOC: HO.HHCL 10:23
PROVIDERS: PCP Internal Medicine; Visit Provider Internal Medicine
DX: E11.65 Type 2 diabetes mellitus with hyperglycemia (principal)
CPT/HCPCS: 82043; 82570

== ENCOUNTER 2025-01-03 13:26 | Outpatient (REF) | payer MEDICARE, SELFPAY ==
--- OUTSIDE RECORDS SUMMARY | 2025-01-03 14:01 | XMS_ITS | Clinical Summary ---
Author Organization [facility] Address [address] [place] [address] Phone Care Team Providers Care Insurance Rater Name Role Phone Unavailable Primary Care Provider [...] Upcoming Encounters Date Type Department Care Team ([facility] Contact Info) Description 05/01/2025 10:15 AM EST Office Visit Bariatric Surgery - [place] [address] [facility] [address] [place] [address] Sary Boyce PA 175 [facility] 120 [place] [address] Health Maintenance Due Date Last Done Comments [...]
[2025-01-03 15:24] LABS: Leukocytes Stool Qualitative NEGATIVE (NEGATIVE)
[2025-01-04 07:36] LABS: E. coli EAEC Not Detected (Not Detect.); E. coli EPEC Detected (Not Detect.); E. coli ETEC Not Detected (Not Detect.); E. coli STEC Not Detected (Not Detect.); Shigella sp./EIEC Not Detected (Not Detect.)
== END 2025-01-03 13:27 | disposition home or self-care (01) ==
LOC: HO.LNP 13:26
PROVIDERS: Visit Provider Internal Medicine
DX: R15.2 Fecal urgency (principal)
CPT/HCPCS: 87507; 89055

== ENCOUNTER 2025-02-05 10:07 | Outpatient (REF) | payer MEDICARE, SELFPAY ==
--- NOTE | 2025-02-05 | EMG_ITS ---
Impression: Normal motor and sensory nerve conduction velocities in the right upper extremity. Normal EMG in the right C5-T1 innervated muscles. Please see detailed neurophysiological report MTDD
--- OUTSIDE RECORDS SUMMARY | 2025-02-05 11:22 | XMS_ITS | Encounter Summary ---
Author Organization [employer] Address 75 [facility] 7t [place] [address] Care Team Providers Care Drywall Sprayer Name Role Phone Sharita Ferro Primary Care Provider [phone] Justine Buenrostro MD Primary Care Provider + Reason for Visit * Reason Comments Med Refill Encounter Details Date Type Department Care Team (Late st Contact Info) Description 12/27/2023 Refill [facility] MEDICINE [address] [place], [place] [phone] Sharita Ferro FNP [address] [place], [place] [phone] Type 2 diabetes mellitus with hyperosmolarity without coma, without long-term current use of insulin ([facility]) Social History Tobacco Use Types Packs/Day [...] coma, without long-term current use of insulin ([facility]) documented in this encounter Additional Health Concerns Assessment Noted Time PHQ-9 Depression Total Score: 3 08/31/19 24 4:25 PM EDT documented as of this encounter Care Teams Drywall Sprayer Relationship Specialty Start Date End Date Sharita Ferro FNP [address] [place] [address] PCP - General Family Medicine 05/17/22 02/20/24 Justine Buenrostro MD [address] [place] [address] PCP - General Internal Medicine 02/21/24 documented as of this encounter
--- OUTSIDE RECORDS SUMMARY | 2025-02-05 11:22 | XMS_ITS | Clinical Summary ---
Author Organization 175 [facility] Address [address] [place] [address] Phone Care Team Providers Care Tank Filler Name Role Phone Unavailable Primary Care Provider [...] Upcoming Encounters Date Type Department Care Team ([facility] Contact Info) Description 05/01/2025 10:15 AM EST Office Visit Bariatric Surgery - [place] [address] [facility] [address] [place] [address] Sary Boyce PA 175 [facility] 120 [place] [address] Health Maintenance Due Date Last Done Comments [...] Panel) 05/22/2022 Colorectal Cancer Screening: Colonoscopy 05/22/2022 HIV Screening 05/22/2022 Hepatitis C Screening 05/22/2022 Medicare Annual Wellness Visit 05/22/2022 Social Influencers of Health Screening 05/22/2022 RSV Immunization Adult Patie nts (1 - Risk 60-74 years 1-dose series) 2022 COVID-19 Vaccine ( - 2023-2 5 season) 2024 Diabetes: Annual Urine Albumin-Creatinine Ratio (uACR) 04/17/2024 Diabetes: Blood Sugar Contro l Test (HGBA1C) 04/17/2024 Hypertension/CHF/CAD Annual BMP Blood Test 04/17/2024 Depression Screening 06/20/2024 Influenza Vaccine (#1) 2025 HIB Vaccines Aged [...]
== END 2025-02-05 10:08 | disposition home or self-care (01) ==
LOC: HO.NEURO 10:07
PROVIDERS: PCP Internal Medicine; Visit Provider Psychiatry & Neurology Neurology
DX: M25.822 Other specified joint disorders, left elbow (principal); G62.9 Polyneuropathy, unspecified; M79.644 Pain in right finger(s)
CPT/HCPCS: 95885; 95911

== ENCOUNTER → 2025-02-05 10:20 | Outpatient (BNV) | payer MEDICARE, SELFPAY | PROVIDERS: PCP Internal Medicine; Visit Provider Psychiatry & Neurology Neurology | DX: G56.91 Unspecified mononeuropathy of right upper limb (principal) | CPT/HCPCS: 95886; 95910 ==

== ENCOUNTER 2025-05-29 13:01 | Outpatient (AMB) | payer MEDICARE, SELFPAY ==
--- NOTE | 2025-05-29 13:02 | A.OFFVIS_ITS ---
Vital Signs 05/29/25 13:12 Height 5 ft 4 in Weight 181 lb 6 oz BMI 31.1 BP 135/65 Blood Pressure Location Lt brachial Position Sitting Pulse 92 Intake Visit Reasons: Lipoma~ cervical spine Intake Note: Patient is seen in office for evaluation of a lipoma of the cervical spine. Pt c/o: onset 3 yrs, denies prior discharge, redness, admits to swollen at times and painful, denies prior mass removed Ammonium Nitrate Crystallizer Required: Yes Ammonium Nitrate Crystallizer Language: Tool Grinder Operator Services: Ammonium Nitrate Crystallizer Present Ammonium Nitrate Crystallizer Name: Bernice CRISTOBAL Information Interpreted: non-clinical & clinical Craft Artist: Craft Artist Present Allergies KWABENA Inhibitors Allergy (Verified 05/29/25 13:11) Cough seafood Allergy (Verified 05/29/25 13:11) Rash Medication List - Last Reconciled 05/29/25 by Alex Henriquez MD albuterol sulfate 90 mcg/actuation (ProAir HFA) 1 inh inhalation QID amitriptyline 100 mg PO BEDTIME 90 days amlodipine 10 mg PO DAILY aspirin (Adult Low Dose Aspirin) 81 mg PO DAILY atorvastatin 20 mg PO BEDTIME calcium carbonate-vitamin D3 600 mg-20 mcg (800 unit) 1 tab PO DAILY cane As directed cetirizine (All Day Allergy (cetirizine)) 10 mg PO DAILY PRN cyclobenzaprine 10 mg PO TID esomeprazole magnesium 40 mg PO DAILY gabapentin 600 mg PO DAILY hydrochlorothiazide 50 mg PO DAILY losartan 100 mg PO DAILY metformin 500 mg PO DAILY tizanidine 4 mg PO BEDTIME valsartan 80 mg PO DAILY walker As directed HPI HPI Lipoma~ cervical spine: Details: [age] year old female referred for a question of a mass on the back of the neck. She says that she has had pain on her neck for a while them and thinks that she may have a ?lump? on the posterior neck area. She does have fibromyalgia and has chronic pain on various parts of her body. She denies any skin changes on her posterior neck. [facility] Medical History (Updated 05/29/25 @ 13:33 by Alex Henriquez MD) Neck pain Idiopathic peripheral neuropathy Carpal tunnel syndrome of right wrist Osteoarthritis Peripheral neuropathy Hyperlipidemia Fibromyalgia Tinea versicolor Depression Gastroesophageal reflux Vitiligo Hypertension Diabetes Surgical History Hx of tubal ligation Family History Father HTN (hypertension) Mother HTN (hypertension) Diabetes Sister Colon cancer Paternal Aunt Breast cancer Social History Household Members: Significant Other and Children Housing: House Alcohol intake: current Alcohol intake frequency: holidays/special occasions only Patient Tobacco Use Status: Never used Tobacco Current occupational status: unemployed Sexual orientation: Straight/Heterosexual Gender identity: Female Review of Systems Const Denies chills and Denies fever(s) Card Denies chest pain, Denies dyspnea and Denies dyspnea on exertion Resp Denies cough, Denies dyspnea and Denies dyspnea on exertion GI Denies hematochezia and Denies change in bowel habits Denies hematuria Musc Reports back pain, Reports myalgias and Denies limited range of motion Neuro Denies focal weakness and Denies convulsions Psych Denies depression and Denies mood swings Physical Exam Vital Signs: Last Vital Signs Pulse 92 05/29/25 13:12 BP 135/65 05/29/25 13:12 BMI result Body Mass Index 31.1 Const General: comfortable and no acute distress Orientation/consciousness: patient oriented x3 Neck Other: She points to the posterior neck as to where her ?lump is?. There is note of prominent subcutaneous fat without any obvious discrete mass Neck: Yes no lymphadenopathy Resp Auscultation: clear to auscultation bilaterally Cardio Rhythm: regular rhythm GI Palpation (GI): Soft to palpation, nontender and no guarding Neuro General: patient oriented x3 Assessment & Plan Assessment & Plan (1) Neck pain: Code(s): M54.2 - Cervicalgia Category: Medical Plan: She is concerned that she may have a ?lump? on the posterior neck. Physical exam does not reveal any obvious discrete mass. There is note of prominent subcutaneous fat. I am going to therefore order for an ultrasound image this area and see if there is any lipoma or any subcutaneous mass. I will see her in the office again thereafter to review the findings. She She is comfortable with the plan. Coding Level of Care Code New Pt Level 3 (52946) Diagnoses Neck pain M54.2
[2025-05-29 13:12] VITALS: BP 135/65; PULSE 92; BMI 31.1
--- OUTSIDE RECORDS SUMMARY | 2025-05-29 20:01 | XMS_ITS | Encounter Summary ---
Author Organization [employer] Address [address] [facility] 7t [place] [address] Care Team Providers Care Staff Services Manager Name Role Phone Sharita Ferro Primary Care Provider [phone] Justine Buenrostro MD Primary Care Provider + Reason for Visit * Reason Comments Med Refill Encounter Details Date Type Department Care Team (Late st Contact Info) Description 12/27/2023 Refill [facility] MEDICINE [address] [place], [place] [phone] Sharita Ferro FNP [address] [place], [place] [phone] Type 2 diabetes mellitus with hyperosmolarity without coma, without long-term current use of insulin ([facility]) Social History Tobacco Use Types [...] coma, without long-term current use of insulin (HCC) documented in this encounter Additional Health Concerns Assessment Noted Time PHQ-9 Depression Total Score: 3 08/31/19 24 4:25 PM EDT documented as of this encounter Care Teams Staff Services Manager Relationship Specialty Start Date End Date Sharita Ferro FNP [address] [place] [address] PCP - General Family Medicine 05/17/22 02/20/24 Justine Buenrostro MD [address] [place] [address] PCP - General Internal Medicine 02/21/24 documented as of this encounter
--- OUTSIDE RECORDS SUMMARY | 2025-05-29 20:01 | XMS_ITS | Clinical Summary ---
Author Organization 175 [facility] Address 175 [place] [address] Phone Care Team Providers Care Accessibility Lift Technician Name Role Phone Unavailable Primary Care [...] use, clean tip and replace cap. Active tiZANidine (ZANAFLEX) 4 mg capsule Take 1 capsule (4 mg total) by mouth 3 (three) times a day. Active tirzepatide, weight loss, (Zepbound) 5 mg/0.5 mL injection INYECTE 0.5 ML (5 MG TOTAL) UNDER THE SKIN EVERY 7 DAYS 2 mL 05/28/20 25 Active tirzepatide (Mounjaro) 5 mg/0.5 mL injection Inject 0.5 mL (5 mg total) under the skin every 7 (seven) days. 2 mL 05/22/20 25 026 Active tirzepatide (Mounjaro) 2.5 mg/0.5 mL injectionIndica tions:Class 1 obesity due to excess calories with serious comorbidity and body mass index (BMI) of 31.0 to 31.9 in adult,Hypertens ion, unspecified type,Sleep trouble,Prediab etes Inject 0.5 mL (2.5 mg total) under the skin every 7 (seven) days. 2 mL 05/01/20 25 025 Discontinued tirzepatide, weight loss, (Zepbound) 5 mg/0.5 mL injection Inject 0.5 mL (5 mg total) under the skin every 7 (seven) days. 2 mL 05/20/20 25 025 Discontinued Active Problems Problem Noted Date Diagnosed Date Class 1 obesity 05/09/2025 Primary osteoarthritis of both knees 04/24/2025 Type 2 diabetes mellitus wit h hyperglycemia, without long-term current use of insulin 06/15/2024 Polymyalgia rheumatica 06/15/2024 HTN (hypertension) 04/17/2024 Diabetes 04/17/2024 Class 1 obesity due to exces s calories with serious comorbidity and body mass index (BMI) of 31.0 to 31.9 in adult 04/17/2024 GERD (gastroesophageal reflux disease) Asthma 04/17/2024 Chronic depression 10/31/2023 Allergic reaction 08/17/2023 Vitiligo 11/16/2018 Hyperlipidemia 01/03/2018 Hypopigmentation 01/03/2018 Major depressive disorder 10/31/2017 Fibromyalgia 10/31/2017 Encounters Date Type Department Care Team Description 05/20/2025 Telephone Bariatric Surgery [address] [phone] Sary Boyce PA 05/01/2025 10:15 AM EST Office Visit Bariatric Surgery [address] [phone] Sary Boyce PA Class 1 obesity due to excess calories with serious comorbidity and body mass index (BMI) of 31.0 to 31.9 in adult (Primary Dx); Hypertension, unspecified type; Sleep trouble; Prediabetes from Last 3 Months Social History Tobacco Use Types Packs/Day Years Used Date Smoking Tobacco: Never Assessed Comments Unknown Sex and Gender Information Value Date Recorded Sex Assigned at Not on file Legal Sex Female 7:32 PM EST Gender Identity Not on file Sexual Orientation Not on file Last Filed Vital Signs Vital Sign Reading Time Taken Comments Blood Pressure 161/88 05/01/2025 10:10 AM EST Pulse 81 05/01/2025 10:10 AM EST Temperature - - Respiratory Rate - - Oxygen Saturation - - Inhaled Oxygen Concentration - - Weight 83.9 kg (185 lb) 05/01/2025 10:10 AM EST Height 162.6 cm (5' 4 ) 05/01/2025 10:10 AM EST Body Mass Index 31.76 05/01/2025 10:10 AM EST Plan of Treatment Upcoming Encounters Date Type Department Care Team (Late st Contact Info) Description 10/03/2025 10:00 AM EDT Office Visit Bariatric Surgery - [address] [place] [address] Sary Boyce PA [address] [place] [phone] Health Maintenance Due Date Last Done Comments Breast Cancer Screening 1962 Colorectal Cancer Screening: Colonoscopy 1962 Diabetes: Annual Foot Exam 1972 Diabetes: Annual Retina Eye Exam 1972 Cholesterol Screening (Lipid Panel) 05/22/2022 HIV Screening 05/22/2022 Hepatitis C Screening 05/22/2022 Medicare Annual Wellness Visit 05/22/2022 Social Influencers of Health Screening 05/22/2022 Diabetes: Annual Urine Albumin-Creatinine Ratio (uACR) 04/17/2024 Depression Screening 06/20/2024 COVID-19 Vaccine ( season) 2025 11/03/2020, 10/06/2020 Diabetes: Annual GFR (Glomerular Filtration Rate) 06/15/2025 06/15/2024 Hypertension/CHF/CAD Annual BMP Blood Test 06/15/2025 06/15/2024 Diabetes: Blood Sugar Control Test (HGBA1C) 07/04/2025 01/01/2025, 06/15/2024 Cervical Cancer Screening: Pap Smear 05/01/2027 05/01/2024 DTaP,Tdap,and Td Vaccines (3 - Td or Tdap) 04/03/2029 04/03/2019, 08/13/2011 Pneumococcal Vaccine: 50+ Years Completed 08/31/2023, 04/03/2019 RSV Immunization Adult Patients Completed 09/13/2023 Zoster Vaccines Completed 11/15/2023, 09/13/2023 Hepatitis B Vaccines Completed 04/24/2025, 08/31/2023, 08/28/2019 Influenza Vaccine Completed 04/24/2025, , 03/21/2019, Additional history exists HIB Vaccines Aged Out [...] to complete this topic RSV Immunization Patients Under 20 months Aged Out No longer eligible based on patient's age to complete this topic Varicella Vaccines Aged Out No longer eligible based on patient's age to complete this topic Insurance [employer] MEDICARE
--- OUTSIDE RECORDS SUMMARY | 2025-05-29 20:01 | XMS_ITS | Encounter Summary ---
Author Organization [employer] Address 75 [facility] 7t [place] [address] Care Team Providers Care Structural Steel Erector Name Role Phone Justine Buenrostro MD Primary Care Provider + Reason for Visit * Reason Comments Med Refill Encounter Details Date Type Department Care Team ([facility] st Contact Info) Description 03/01/2024 Refill [facility] [address] [place], [place] [phone] Name, MD [place] [address] [place] [address] Type 2 diabetes mellitus with unspecified complications [...] Type 2 diabetes mellitus with unspecified complications (HCC) documented in this encounter Additional Health Concerns Assessment Noted Time PHQ-9 Depression Total Score: 3 08/31/19 24 4:25 PM EDT documented as of this encounter Care Teams Structural Steel Erector Relationship Specialty Start Date End Date Justine Buenrostro MD [address] [place] [address] PCP - General Internal Medicine 02/21/24 documented as of this encounter
--- OUTSIDE RECORDS SUMMARY | 2025-05-29 20:02 | XMS_ITS | Encounter Summary ---
Author Organization [employer] Address 75 [facility] 7t [place] [address] Care Team Providers Care Vein Pumper Name Role Phone Justine Buenrostro MD Primary Care Provider + Reason for Visit * Reason Comments Med Refill Encounter Details Date Type Department Care Team (Late st Contact Info) Description 05/26/2025 Refill [facility] MEDICINE [address] [place], [place] [phone] Justine Buenrostro MD 230 [place], [place] [phone] Social History Tobacco Use Types Packs/Day Years Used Date Smoking Tobacco: Never Smokeless Tobacco: Never Alcohol Use Standard Drinks/Week Comments Yes 0 (1 standard drink = 0.6 oz pur e alcohol) socially Depression Answer Date Recorded Patient Health Questionnaire-9 Score 0 01/01/2025 Patient Health Questionnaire-9 Score 0 01/01/2025 Last PHQ-9: Questionnaire Data Not on file 0 01/01/2025 Housing Stability Answer Date Recorded What is your housing situation today? I have ke ortega 01/01/[address] you li ve. Do you have problems with any of the following? None of the above 01/01/2025 Food Insecurity Answer Date Recorded Within the past 12 months, y ou worried that your food would run out before you got money to buy more: Never True 01/01/2025 Within the past 12 months,th e food you bought just didn't last and you didn't have enough money to get more: Never True Transportation Answer Date Recorded In the past 12 months, has l ack of transportation kept you from medical appts, meetings, work or from getting things needed for daily living? No 01/01/2025 Utilities Answer Date Recorded In the past 12 months, has t he electric, gas, oil or water company threatened to shut off services in your home? No 01/01/2025 Depression Answer Date Recorded Patient Health Questionnaire-2 Score 0 01/01/2025 Internet Access Answer Date Recorded Internet Access Q1 Yes 01/01/2025 Internet Access Q2 Not on file 01/01/2025 Comments No Sex and Gender Information Value [...] Assessment Noted Time PHQ-9 Depression Total Score: 0 01/02/20 25 9:52 AM EDT documented as of this encounter Care Teams Vein Pumper Relationship Specialty Start Date End Date Justine Buenrostro MD [address] [place] [address] PCP - General Internal Medicine 02/21/24 documented as of this encounter
--- OUTSIDE RECORDS SUMMARY | 2025-05-29 20:02 | XMS_ITS ---
Author Name Mai Carrillo NP Address [address] [place] [address] Phone [phone] [facility] Care Team Providers Care Net Repairer Name Role Phone Mai Carrillo Unavailable [phone] Justine Buenrostro Unavailable [phone] Reason for Referral Not Available Allergies, adverse reactions, alerts No known allergies History of medication use Medication Class Instructions Start Date End Date Cetirizine 10 mg Tab TOME JOLENE TABLETA DIARIAMENTE 2024-07-24 No Data Available Atorvastatin Calcium 20 mg Tab TAKE 1 TA BLET (20 MG) BY MOUTH AT BEDTIME. TOME JOLENE TABLETA TODOS LOS CUBA 2024-09-14 No Data Available Breo Ellipta 200-25 MCG/ACT Aerosol Powder Breath Activated INHALE 1 PUFF POR V A ORAL A DIARIO 2024-10-10 No Data Available Losartan Potassium 100 mg Tab TAKE 1 TAB LET (100 MG) BY MOUTH ONCE PER DAY. 2024-12-10 No Data Available metFORMIN 500 mg Tab TOME 1 TABLETA POR V A ORAL DOS VECES AL D A 2024-09-19 No Data Available predniSONE 20 mg Tab TAKE 1 TABLET (20 M G) BY MOUTH ONCE PER DAY FOR 5 DAYS. 2025-01-01 No Data Available Esomeprazole Magnesium 40 mg Cap delayed rel TAKE 1 CAPSULE (40 MG) BY MOUTH BEFORE BREAKFAST. DO NOT OPEN CAPSULE. 2025-01-01 No Data Available CALCIUM 600-VIT D3 800 TABLET TOME JOLENE T ABLETA POR V A ORAL TODOS LOS D 2025-01-01 No Data Available Amitriptyline 100 mg Tab TOME JOLENE TABLET A POR V A ORAL AL ACOSTARSE FOR 90 DAYS 2025-01-07 No Data Available tiZANidine 4 mg Tab TOME 1 TABLETA POR V A ORAL TODOS LOS D AL ACOSTARSE 2025-01-08 No Data Available Fluticasone Propionate 50 MCG/ACT Suspension ROCIAR 2 VECES EN CADA FOSA NASAL TODOS LOS D 2025-01-23 No Data Available Albuterol Sulfate HFA 108 (9 0 Base) MCG/ACT Aerosol Solution INHALE DANDO DOS SOPLIDOS CADA CUATRO HORAS CUANDO SEA NECESARIO 2025-01-23 No Data Available hydroCHLOROthiazide 50 mg Tab TOME 1 TAB LAVON POR V A ORAL TODOS LOS D 2025-02-13 No Data Available Diclofenac Sodium 1 % Gel APPLY 2-3 GRAM S TO AFFECTED AREA NEEDED FOR PAIN 2025-02-27 No Data Available Vancomycin 125 mg Cap TOME 1 C PSULA POR V A ORAL CADA 6 HORAS POR 10 D 2025-03-05 No Data Available Gabapentin 600 mg Tab TOME DOS TABLETAS POR V A ORAL DOS VECES AL D A FOR 30 DAYS 2024-09-25 No Data Available amLODIPine Besylate 5 mg Tab TAKE 1 TABL ET (5 MG) BY MOUTH ONCE PER DAY. 2025-04-24 No Data Available Mounjaro 2.5 mg/0.5ML Soluti on Auto-injector INYECTE 0.5 ML (2.5 MG TOTAL) UNDER THE SKIN EVERY 7 DAYS 2025-05-01 No Data Available tiZANidine 4 mg Tab 1 tablet two tablets a day 2025-05-14 No Data Available Diclofenac Sodium 1 % Gel 4 grams topica lly to affected area 4 times per day PRN 2025-05-14 No Data Available Problem List Problem Status Onset Date Resolved Date Synopsis Hyperlipidemia associated with type 2 diabetes mellitus,Neuropathy, diabetic Active 2025-05-14 N/A statin, metformi n, mounjaro,gabapentim01/01/25 Hemoglobin A1C 5.7 OC05/14/25controlledFBG 125-135f/up with PCP.Patient education the importance of diabetic diet, exercise, medication compliance. Patient education on hypoglycemia and hyperglycemia signs and symptoms. Monitor daily BGL. Patient to assess feet daily for any cuts or wounds and to notify pcp or [facility] as soon as possible COPD (chronic obstructive pulmonary disease) Active 2025-05-14 N/A breo,flonase, zyrtec, aaxtwjfkp52/25/25controlle df/up with PCPno oxygen.Importance medication compliance, breathing techniques, Fibromyalgia Active 2025-05-14 N/A Amitryptilli ne, Tizanidine, Nljickovfl19/25/25controll edf/up with PCP HTN (hypertension) Active 2025-05-14 N/A Aml[place] pine, HZTC,lOsartanBlood Pressure 130/82 01/01/2025, OC05/14/25controlledf/up with PCPbp monitor: yes.Monitor BP routinely, low salt diet, exercise as tolerable, and continue f/u care with PCP. GERD (gastroesophageal reflux disease) Active 2025-05-14 N/A PPI05/14/25contr olledf/up with PCP.avoid trigger foods like spicy or fatty foods, eat smaller meals, and avoid lying down immediately after eating. Other problems related to medical facilities and other health care Active 2025-05-14 N/A DIABETES CO NTINGENCY PLANLast updated: 05/14/2025Member to call for the following symptoms: Blood sugar <70 / Blood sugar >300 Planned intervention: Elevate legs/ Limit high-sugar and high-carbohydrate foods/ Go for a walk Obesity (BMI 30.0-34.9) Active 2025-05-14 N/A . Patient educated on the importance of diet compliance or modifications and exercise as tolerated Encounters Encounters Type Facility Date of Service Diagnosis/Complaint New patient 15-29min; 1 minor problem; add modifier 95 for video, modifier [address] [facility] 05/14/2025 Type 2 diabetes mellitus wit h other specified complicationOther hyperlipidemiaType 2 diabetes mellitus with diabetic neuropathy, unspecifiedChronic obstructive pulmonary disease, unspecifiedFibromyalgiaEssential (primary) hypertensionGastro-esophageal reflux disease without esophagitisObesity, class 1Other problems related to medical facilities and other health care New patient 15-29min; 1 minor problem; add modifier 95 for video, modifier 93 for [facility], ([place]) 05/14/2025 New patient 15-29min; 1 minor problem; add modifier 95 for video, modifier 93 for [facility], ([place] 05/14/2025 New patient 15-29min; 1 minor problem; add modifier 95 for video, modifier 93 for phone [facility] ([place]) 05/14/2025 New patient 15-29min; 1 minor problem; add modifier 95 for video, modifier 93 for phone [facility] [place] 05/14/2025 New patient 15-29min; 1 minor problem; add modifier 95 for video, modifier 93 for phone [facility] [place] 05/14/2025 New patient 15-29min; 1 minor problem; add modifier 95 for video, modifier 93 for phone [facility] [place] 05/14/2025 New patient 15-29min; 1 minor problem; add modifier 95 for video, modifier 93 for phone [facility] [place] 05/14/2025 New patient 15-29min; 1 minor problem; add modifier 95 for video, modifier 93 for phone [facility] [place] 05/14/2025 New patient 15-29min; 1 minor problem; add modifier 95 for video, modifier 93 for phone [facility] [place] 05/14/2025 Vital Signs Date of Collection Vitals 2025-05-14 08:11:17 Height - 162.56 cmWe ight - 83.92 kgBody Mass Index (BMI) - 31.76 kg/m2BP Diastolic - 82.0 mm[Hg]BP Systolic - 130.0 mm[Hg]Pain Scale - 8.0 {score} Social History Social History Social History Observation Description Effec tive Time Current Smoking Status Never smoker 2025-05-20 1 Sex Female Gender identity Woman History of Procedures Procedures Service Procedure code Service date Servicing provider Phone# New patient 15-29min; 1 minor problem; add modifier 95 for video, modifier 93 for phone [id number] 2025-05-14 No Data Available No Data Availa ble Medication List Documented (1159F) 1159F 2025-05-14 No Data Available No Data Korina ilable Medication Review by prescribing provider or pharmacist documented (1160F) 1160F 2025-05-14 No Data Available No Data Korina ilable Functional Status Assessed (1170F) 1170F 2025-05-14 No Data Available No Data Avail able Advance Care Directive Advance care planning discussion documented in the medical record (1158F) 1158F 2025-05-14 No Data Available No Data Availa ble Advance care planning discussed and documented advance care plan or surrogate decision-maker was documented in the medical record. (1123F) 1123F 2025-05-14 No Data Available No Data Availa ble Pain Assessment - Pain Documented on a Pain Scale (1125F) 1125F 2025-05-14 No Data Available No Data Korina ilable SBP 130-139 (3075F) 3075F 2025-05-14 No Data Availabl e No Data Available DBP 80-89 (3079F) 3079F 2025-05-14 No Data Available No Data Available Most recent A1c (HbA1c) or GMI level <7% (3044F) 3044F 2025-05-14 No Data Available No Data Availa ble Functional Status Functional Category Effective Dates Cognition Status: Oriented to Person, Pl [place] and Time 2025-05-14 ADL: Bathing Needs Assistanc e , Dressing Needs Assistance , Eating Independent , Ambulation Needs Assistance , Transferring Needs Assistance and Toileting Independent 2025-05-14 IADL: Medication Needs Sotero tance , Shopping Needs Assistance and Housework Needs Assistance 2025-05-14 Have you fallen in the last 6 months? No ne 2025-05-14 Near falls within the last 6 months? Non e 2025-05-14 Do you feel unsteady on your feet when s tanding or walking? No 2025-05-14 Are you worried about falling? No 2024-06 DME used with ambulation: [employer] 10-28-24 Social Supports - # of Inter actions with Friends/Family in a typical week: daily 2025-05-14 Mental Status Status Date AAO times 3 2025-05-14 Assessments Date of Service Assessments 2025-05-14 08:11:17 Hyperlipidemia assoc iated with type 2 diabetes mellitus,Neuropathy, diabeticCOPD (chronic obstructive pulmonary disease)FibromyalgiaHTN (hypertension)GERD (gastroesophageal reflux disease)Other problems related to medical facilities and other health careObesity (BMI 30.0-34.9) Plan of Care Date of Service Plans 2025-05-14 08:11:17 Medication Review by prescribing provider or pharmacist documented (1160F)Medication List Documented (1159F)Functional Status Assessed (1170F)Advance Care Directive Advance care planning discussion documented in the medical record (1158F)Advance care planning discussed and documented advance care plan or surrogate decision-maker was documented in the medical record. (1123F)BMI obtained (3008F)New patient 15-29min; 1 minor problem; add modifier 95 for video, modifier 93 for phoneSBP < 130 (3074F)Most recent A1c (HbA1c) or GMI level <7% (3044F)Pain Assessment - Pain Documented on a Pain Scale (1125F)DBP 80-89 (3079F)Continue to see PCP. Follow-up with [facility] as needed for any acute or disease education needs that may arise.statin, metformin, mounjaro,gabapentim01/01/25 Hemoglobin A1C 5.7 OC05/14/25controlledFBG 125-135f/up with PCP.Patient education the importance of diabetic diet, exercise, medication compliance. Patient education on hypoglycemia and hyperglycemia signs and symptoms. Monitor daily BGL. Patient to assess feet daily for any cuts or wounds and to notify pcp or [facility] as soon as possiblebreo,flonase, zyrtec, mmchjcbai84/25/25controlledf/up with PCPno oxygen.Importance medication compliance, breathing techniques,Amitryptilline, Tizanidine, Vzlzhndgrs13/25/25controlledf/up with PCPAmlodipine, HZTC,lOsartanBlood Pressure 130/82 01/01/2025, OC05/14/25controlledf/up with PCPbp monitor: yes.Monitor BP routinely, low salt diet, exercise as tolerable, and continue f/u care with PCP.PPI05/14/25controlledf/up with PCP.avoid trigger foods like spicy or fatty foods, eat smaller meals, and avoid lying down immediately after eating.DIABETES CONTINGENCY PLANLast updated: 05/14/2025Member to call for the following symptoms: Blood sugar <70 / Blood sugar >300 Planned intervention: Elevate legs/ Limit high-sugar and high-carbohydrate foods/ Go for a walk.Patient educated on the importance of diet compliance or modifications and exercise as toleratedfollow up with PCP/specialistsAt least 50% of time spent counseling patient, discussing diagnosis, treatment plan, compliance, and coordinating follow-up care Goals Date Goal 2025-05-14 .Remember to keep al l appointments with your PCP and specialists. Call CB / if you have questions or concerns. Discussed how to contact [facility] via phone or tablet. 24 phone number provided. Health Concerns Date Concern 2025-05-14 Patient/Guardian agr stacey to visit via telehealth. Introductory visit with [facility] to establish care. Today, patient has chief complaint of: establishing care.Visit completed via:[x] audio and video; [ ] audio only Informed verbal consent was obtained from this patient to communicate and provide care using virtual and other telecommunications tools. This patient has been explained the risks, if any, related to the encounter. I explained that care provided through video or audio communication cannot replace the need for physical examination or an in-person visit for some disorders or urgent problems. 2025-05-14 Concerns for today's visit:No acute concerns or needs.Reviewed allergies, medications, active medical conditions, past medical and surgical history, social history. 2025-05-14 Most recent hospital stay or ER visit:No ER visits or hospitalizations documented in [facility] in last year.Member denies ER visits or hospitalizations in last year.Discussed our goal of helping the member have more days at home rather than in the ER or the hospital. 2025-05-14 Open HEDIS Measures: No open measures 2025-05-14 spoke to member
--- OUTSIDE RECORDS SUMMARY | 2025-05-29 20:02 | XMS_ITS | Encounter Summary ---
Author Organization [employer] Address [address] [facility] [facility] [address] [place] [address] Care Team Providers Care Rfp Writer Name Role Phone Justine Buenrostro MD Primary Care Provider + Encounter Details Date Type Department Care Team ([facility] st Contact Info) Description 10/18/2024 Telephone [facility] MEDICINE [address] [place], [place] [phone] Justine Buenrostro MD [address] [place], [place] [phone] Social History Tobacco Use Types Packs/Day Years [...] documented as of this encounter Care Teams Rfp Writer Relationship Specialty Start Date End Date Justine Buenrostro MD [address] [place] [id number] PCP - General Internal Medicine 02/21/24 documented as of this encounter
--- OUTSIDE RECORDS SUMMARY | 2025-05-29 20:02 | XMS_ITS | Encounter Summary ---
Author Organization [employer] Address [address] [place] [address] [address] [place] [address] Care Team Providers Care Outside Food Server Name Role Phone Sharita Ferro Primary Care Provider [phone] Justine Buenrostro MD Primary Care Provider + Reason for Visit * Reason Onset Date Comments Med Refill 12/02/2022 Encounter Details Date Type Department Care Team (Late st Contact Info) Description 12/02/2022 Telephone [facility] MEDICINE [address] [place], [place] [phone] Sharita Ferro FNP [address] [place], [place] [phone] Med Refill Social History Tobacco Use Types [...] documented in this encounter Plan of Treatment Not on file documented as of this encounter Visit Diagnoses Not on filedocumented in this encounter Additional Health Concerns Assessment Noted Time PHQ-9 Depression Total Score: 5 09/09/19 23 10:36 AM EDT documented as of this encounter Care Teams Outside Food Server Relationship Specialty Start Date End Date Sharita Ferro FNP [address] [place] [address] PCP - General Family Medicine 05/17/22 02/20/24 Justine Buenrostro MD [address] [place] [address] PCP - General Internal Medicine 02/21/24 documented as of this encounter
--- OUTSIDE RECORDS SUMMARY | 2025-05-29 20:02 | XMS_ITS | Encounter Summary ---
Author Organization [employer] Address [address] [facility] [address] [place] [address] Care Team Providers Care Parachute/Combatant Diver Officer Name Role Phone Sharita Ferro Primary Care Provider [phone] Justine Buenrostro MD Primary Care Provider + Reason for Visit * Reason Comments Med Refill Encounter Details Date Type Department Care Team (Late st Contact Info) Description 05/15/2023 Refill [facility] [address] [place] [address] Name, MD [place] [address] [place] [address] Social History Tobacco Use Types Packs/Day Years [...] documented as of this encounter Care Teams Parachute/Combatant Diver Officer Relationship Specialty Start Date End Date Sharita Ferro FNP [address] [place] [address] PCP - General Family Medicine 05/17/22 02/20/24 Justine Buenrostro MD [address] [place] [address] PCP - General Internal Medicine 02/21/24 documented as of this encounter
--- OUTSIDE RECORDS SUMMARY | 2025-05-29 20:02 | XMS_ITS | Clinical Summary ---
Author Organization [employer] Address [address] [place] [address] 7[address] [place] [address] Care Team Providers Care Senior Wind Energy Consultant Name Role Phone Justine Buenrostro MD Primary Care Provider + Allergies Active Allergy Reactions Criticality Noted Date Comments Anselmo Inhibitors Cough 12/12/2018 Celecoxib Hives 08/17/2023 Shellfish Allergy High 10/31/2023 Medications albuterol (2.5 MG/3ML) 0.083% nebulizer [...] without long-term current use of insulin (HCC) 1 each by Other route in the morning. 100 each 3 024 Active Aspirin Low Dose 81 MG EC tabletIndications: Type 2 diabetes mellitus with unspecified complications (HCC) TOME JOLENE TABLETA (81 MG) POR VIA ORAL EN LA MANANA 90 tablet 1 024 Active Blood Glucose Monitoring Suppl ([employer] Verio) w/Device kitIndications:Typ e 2 diabetes mellitus with hyperosmolarity without coma, without long-term current use of insulin (HCC) USE TO TEST BLOOD SUGAR EVERY MORNING 1 kit Active Drake Licona 33G miscIndications:Ty pe 2 diabetes mellitus with hyperosmolarity without coma, without long-term current use of insulin ([facility]) USE TO TEST BLOOD SUGAR EVERY MORNING 100 each 11 Active cetirizine (ZyrTEC) 10 MG tablet TAKE 1 TABLET BY MOUTH EVERY DAY 90 tablet 1 Active Breo Ellipta 200-25 MCG/ACT aerosol powder Inhale 1 Inhalation Once per day. 024 Active atorvastatin (Lipitor) 20 MG tablet Take 1 tablet (20 mg) by mouth at bedtime. TOME JOLENE TABLETA TODOS LOS CUBA 30 tablet 11 025 Active metFORMIN (Glucophage) 500 MG tablet TAKE 1 TABLET BY MOUTH TWICE A DAY 180 tablet 1 025 Active esomeprazole (NexIUM) [address] capsule Take 1 capsule (40 mg) by mouth before breakfast. Do not open capsule. 90 capsule 1 025 2025 Active Calcium Carbonate-Vit D-Min (Caltrate 600+D Plus Minerals) 600-800 MG-UNIT tablet 1 tab po/d 90 tablet 3 025 Active amitriptyline (Elavil) 50 MG tablet TOME DOS TABLETAS POR VIA ORAL AL ACOSTARSE 90 025 Active Calcium 600+D3 600-20 MG-MCG tablet Active nabumetone (Relafen) 500 MG tablet TAKE 1 TABLET TWICE DAILY NEEDED FOR PAIN. TAKE WITH FOOD 025 Active hydroCHLOROthiazid e (HYDRODiuril) 50 MG tablet TAKE 1 TABLET BY MOUTH EVERY DAY 90 tablet 1 025 Active tiZANidine (Zanaflex) 4 MG tablet TAKE 1 TABLET BY MOUTH AT BEDTIME 90 tablet Active amLODIPine (Norvasc) 5 MG tablet Take 1 tablet (5 mg) by mouth Once per day. 30 tablet 11 025 2025 Active losartan (Cozaar) 100 MG tablet TAKE 1 TABLET (100 MG) BY MOUTH ONCE PER DAY. 90 tablet 1 025 Active losartan (Cozaar) 100 MG tablet TAKE 1 TABLET (100 MG) BY MOUTH ONCE PER DAY. 90 tablet 1 025 2024 Discontinued Active Problems Problem Noted Date Diagnosed Date Overweight 04/24/2025 Assessment & Plan (04/24/2025 9:14 AM EST): Discussed re weight reduction options including exercise, life style modifications, diet. Recommended to decrease soda and sugary beverage consumption, increase protein intake with meals (at least 1 portion of protein with each meal) to assist with satiety, increase dietary fiber Recommended at least 150 min/week of moderate intensity exercise. Primary osteoarthritis of both knees 04/24/2025 Assessment & Plan (04/24/2025 9:56 AM EST): - Fu orthopedics with intra-articular corticosteroid injections Q3-4mo and topical diclofenac. - Referred to physical therapy. - Continue intra-articular corticosteroid injections as needed for pain, will try to minimize need. Familial benign cervical symmetric lipomatosis 1 06/24/2024 Assessment & Plan (04/24/2025 9:57 AM EST): - Cervical lipomatous mass present, not significantly enlarged, she wants it resected. - Referred to surgery for evaluation Type 2 diabetes mellitus with albuminuria 2024 Assessment & Plan (04/24/2025 10:01 AM EST): - Controlled, A1c was at goal recently. 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 Renal function currently preserved. - Ordered laboratory tests for May or June to monitor renal function and glycemic control. Advised to maintain glycemic control to prevent progression of nephropathy. - Continue on Metformin for now despite occasional diarrhea, keep a meal log of episodes diarrhea, consider holding metformin if diarrhea is recurrent - Counseled re more frequent low calorie/carb meals. - Check fgstk 1x daily - Encouraged physical activity as tolerated. - FU in 3 months. FU with ophthalmology/eye clinic up to date, next one due on 01/2026 Foot examination is normal, no diabetic neuropathy, she will call [facility] podiatry office to rs appt Incontinence of feces with fecal urgency 025 Assessment & Plan (04/24/2025 9:57 AM EST): - Resolved, likely related to diarrhea - Advised to identify and avoid foods that trigger diarrhea. Instructed to temporarily discontinue metformin during episodes of diarrhea and resume when symptoms resolve. If diarrhea persists and is not related to diet, consider alternative diabetes medication. Assessment & Plan (01/01/2025 10:19 AM EDT): Order stool test, advised to follow-up with GI, she is due for colonoscopy in February 2025. Chronic bilateral low back pain with right-sided sciatica 09/14/2024 Assessment & Plan (01/01/2025 10:18 AM EDT): Improved status post PT Take meloxicam as needed and continue home-based PT Assessment & Plan (09/14/2024 3:16 PM EDT): [...] clinic Polymyalgia rheumatica 06/15/2024 Assessment & Plan (01/01/2025 10:18 AM EDT): She reportedly saw rheumatology but is unclear if she was restarted on medications, will obtain notes I will Rx prednisone x 5 days as tenosynovitis may be a manifestation of PMR, follow-up with rheumatology Assessment & Plan (06/15/2024 10:39 AM EST): Probably uncontrolled, she sees Rheumatology, new referral sent. She was previously on Prednisone, may need to be on MTS or other biological agent. FU with Rheumatology. Type 2 diabetes mellitus wit h hyperglycemia, without long-term current use of insulin 06/15/2024 Assessment & Plan (01/01/2025 10:16 AM EDT): Controlled. Last A1c on 05/2024 was at goal. Continue on metformin Counseled re more frequent low calorie/carb meals. Check fgstk 1X daily Encouraged physical activity as tolerated. Order microalbumin testing FU in 4 months months. Assessment & Plan (09/14/2024 3:15 PM EDT): [...] only, as per allergy office. FU w material manager Cervical pain (neck) 10/31/2023 Foot pain 10/31/2023 Mixed anxiety depressive disorder 10/31/2023 Overview (10/31/2023): Depression Care plan up dated--- 04/05/12 Assessment & Plan (01/01/2025 10:17 AM EDT): Doing well on gabapentin nightly only, she sleeps well. I discussed about healthy lifestyle and different coping mechanisms with anxiety and depression. Patient feels safe at home and has crisis number. Follow-up with me in 3 to 4 months or earlier as needed Assessment & Plan (09/14/2024 3:19 PM EDT): [...] she experience such reaction again -referral to material manager placed for testing -patient advised discontinue use [...] HTN (hypertension), benign 09/12/2017 Assessment & Plan (04/24/2025 9:55 AM EST): - Uncontrolled. Hypertension with frequent elevated readings (up to 180/100 mmHg), possibly exacerbated by corticosteroid use and overweight status. - Prescribed amlodipine 5 mg daily. Continue losartan and Hctz, Advised to monitor blood pressure at home. If blood pressure remains above 150/90 mmHg after 3-4 weeks, instructed to contact provider for further management. - Counseled re low salt diet/increase moderate physical activity. - Influenza IZ today, declined covid vax Assessment & Plan (01/01/2025 10:16 AM EDT): Controlled. Compliant w/meds Continue losartan and HCTZ, no need to restart amlodipine. Counseled re low salt diet/increase moderate physical activity. Check home BP BIW and prn CP/WALKER/SULLIVAN Non smoking patient. Follow-up in 4 months Assessment & Plan (09/14/2024 3:14 PM EDT): [...] Problem Noted Date Diagnosed Date Resolved Date Tenosynovitis of finger 01/01/202510/2024 Assessment & Plan (01/01/2025 10:18 AM EDT): Right third finger, advised to use meloxicam daily, use hand brace and call back as needed for OT referral Rx prednisone x 5 days Sprain of groin 09/14/2024 04/24/2025 Assessment & Plan (09/14/2024 3:19 PM EDT): Referred to PT Apply heat to affected area and take Tylenol as needed Type 2 diabetes mellitus wit h hyperosmolarity without coma, without long-term current use of insulin 09/12/2017 06/15/2024 Encounters Date Type Department Care Team Description 05/26/2025 Refill [facility] MEDICINE [address] [place] [phone] Justine Buenrostro MD 04/24/2025 9:15 AM EST Office Visit [facility] MEDICINE [address] [place] [phone] Justine Buenrostro MD HTN (hypertension), benign (Primary Dx); Familial benign cervical symmetric lipomatosis; Primary osteoarthritis of both knees; Overweight; Incontinence of feces with fecal urgency; Type 2 diabetes mellitus with albuminuria (HCC); Dietary counseling; Exercise counseling; Encounter for immunization 04/24/2025 Travel 04/23/2025 Telephone [facility] MEDICINE [address] [place] [phone] Justine Buenrostro MD CHART PREP 04/16/[address] [phone] Justine Buenrostro MD June04/05/2025 Refill [facility] MEDICINE [address] [place] [phone] Justine Buenrostro MD from Last 3 Months Immunizations Immunization Administration Dates Next Due Hep B, adult 04/24/2025,08/31/2023,08/28/2019 INFLUENZA INJECTABLE QUADRIV ALANT CCIIV4 MDCK Multi-dose vial 03/21/2019 Influenza injectable quadriv alent preservative free 03/07/2018,03/07/2018,04/07/2017 Influenza, IIV3, injectable 04/15/2014, 3,03/16/2012 Influenza, seasonal, injecta ble, preservative free 04/24/2025,06/15/2024 Pneumococcal Conjugate PCV 20 08/31/2023 Pneumococcal Polysaccharide [...] Not Answered Alcohol Use Standard Drinks/Week Comments Yes 0 [...] Sign Reading Time Taken Comments Blood Pressure 154/98 04/24/2025 9:21 AM EST Pulse 83 04/24/2025 9:21 AM EST Temperature 36.2 C (97.1 F) 04/24/2025 9:21 AM EST Respiratory Rate 14 04/24/2025 9:21 AM EST Oxygen Saturation 100% 04/24/2025 9:21 AM EST Inhaled Oxygen Concentration - - Weight 83.5 kg (184 lb) 04/24/2025 9:21 AM EST Height 162.6 cm (5' 4 ) 04/24/2025 9:21 AM EST Body Mass Index 31.58 04/24/2025 9:21 AM EST Plan of Treatment Health Maintenance Due Date Last Done Comments CT Colonography 1960 FIT DNA/Cologuard 1960 FIT 1960 FOBT 1960 HIV Screening 1960 Sigmoidoscopy 1960 Hepatitis C Screening 1980 Diabetes: Foot Exam 11/20/2024 11/21/2023, 11/21/2023, 11/21/2023, Additional history exists COVID-19 Vaccine ( season) 2025 11/03/2020, 10/06/2020 Colonoscopy 03/11/2025 03/11/2022 Colorectal Cancer Screening 03/11/2025 Lipid Panel 06/15/2025 06/15/2024, 08/18, 09/08/2022, Additional history exists Diabetes: Hemoglobin A1C 07/04/2025 025, 06/15/2024, 08/31/2023, Additional history exists Mammogram 10/04/2025 10/04/2024, 09/18, 06/17/2020, Additional history exists Alcohol/Substance Use Screening 01/01/2026 01/01/2025 Depression Screening 01/01/2026 01/01/2025, 01/02/20 25 Disability Screening 01/01/2026 01/01/2025 SDOH Screening 01/01/2026 01/01/2025 Tobacco Screening 04/24/2026 04/24/2025 Eye Exam 12/31/2026 12/31/2024, 12/18, 12/31/2024, Additional history exists DTaP/Tdap/Td Vaccines (3 - [...] Date/Time Associated Diagnosis Comments POCT GLUCOSE Routine 04/24/2025 9:57 AM EST Type 2 diabetes mellitus with albuminuria (HCC) POCT GLYCATED HEMOGLOBIN, TOTAL Routine 01/01/2025 9:55 AM EDT Type 2 diabetes mellitus with hyperglycemia, without long-term current use of insulin ([facility]) BI MAMMOGRAM SCREENING TOMOSYNTHESIS BILATERAL Routine 10/04/2024 9:20 AM EDT LIPID PANEL WITH REFLEX TO DIRECT LDL Routine 06/15/2024 9:58 AM EST Mixed hyperlipidemia PAP SMEAR Routine 05/01/2024 9:18 AM EST HPV MRNA E6/E7 REFLEX TO HPV 16, 18/45 Routine 05/01/2024 12:00 AM EST HM COLONOSCOPY Routine 03/11/2022 2:56 PM EDT from Last 3 Months or Most Recently Relevant to Health Maintenance Results * POCT Glucose (04/24/2025 9:57 AM EST) Glucose Blood, POC 161 60 - 200 mg/dL Comment:random QC Media Lot # [id number] Lot# Expiration Date Blood Capillary blood specimen / Unknown 04/24/2025 9:57 AM EST Justine Buenrostro MD POINT OF CARE TEST ENTER /EDIT ORDERABLES Final Result * (ABNORMAL) POCT HGB A1C (01/01/2025 9:55 AM EDT) Hemoglobin A1C 5.7 4.0 - 5.7 % Blood 01/01/2025 9:55 AM EDT Justine Buenrostro MD POINT OF CARE TEST ENTER /EDIT ORDERABLES Final Result * BI Mammogram Screening Tomosynthesis Bilateral (10/04/2024 9:20 AM EDT) Anatomical Region Laterality Modality Breast Bilateral Mammography 10/04/2024 9:20 AM EDT Narrative 10/13/2024 3:00 PM EDT [facility] [address] [place] [address] Mammography Report Signed Patient: Klaudia Lopes MR#: [id number] : 1960 Acct:[id number] Age/Sex: 64 / F ADM Date: 10/04/24 Loc: HO.MAMMO Attending Dr: Sharita Ferro NP Ordering Physician: Sharita Ferro NP Results: 1Negativ e Date of Service: 10/04/24 Follow Up: 1 Year From Orig inal Mammogram Procedure(s): MM tomosynthesis screening BI Accession Number(s): [id number] cc: Sharita Ferro NP; Justine Buenrostro MD EXAMINATION: MM SCREENING DIGITAL [...] Chelsea Tom DO 10/13/2024 02:57 PM EDT RP Dictated By: Chelsea Tom DO Signed By: <Electronically signed by Chelsea Tom DO in OV> 10/13/24 1457 DD/ 0920 TD/TT: 10/04/24 0940 Structural Steel Worker: Procedure Note Donotuseinterpreter, Image - 10/13/20[facility] [address] [place] [address] Mammography Report Signed Patient: Klaudia Lopes [facility]#: [id number] : 1960Acct:[id number] Age/Sex: 64 / FADM Date: 10/04/24 Loc: HO.MAMMO Attending Dr: Sharita Ferro NP Ordering Physician: Sharita Ferro NPResults: 1Negativ e Date of Service: 10/04/24Follow Up: 1 Year From Orig ina Mammogram Procedure(s): MM tomosynthesis screening BI Accession Number(s): [id number] cc: Sharita Ferro NP; Justine Buenrostro MD EXAMINATION: MM SCREENING DIGITAL [...] Chelsea Tom DO 10/13/2024 02:57 PM EDT RP Dictated By: Chelsea Tom DO Signed By: <Electronically signed by Chelsea Tom DO in OV> 10/13/24 1457 DD/ 9 TD/TT: 10/04/24939 Structural Steel Worker: us Sharita Ferro MECHANICAL SYSTEMS DESIGN ENGINEER IMG BI PROCEDURES Edited Result - Final * (ABNORMAL) Lipid Panel with Reflex to Direct LDL (06/15/2024 9:58 AM EST) Triglycerides 243(H) <150 mg/dL [facility] Comment:Desirable Triglyceri de: less than 150 mg/dLBorderline High Triglyceride 150-199 mg/dLHigh Triglyceride: 200-499 mg/dLVery High Triglyceride: greater than or equal to 5OO mg/dL Cholesterol 212(H) <200 mg/dL [facility] Comment:Desirable Cholestero l: less than 200 mg/dLBorderline High Cholesterol: 200-239 mg/dLHigh Cholesterol: greater than 239 mg/dL LDL Cholesterol Calculated 119(H) <100 mg/dL [facility] Comment:Desirable LDL: less than 100 mg/dLNear Optimal/Above Optimal LDL: 110- 129 mg/dLBorderline High LDL: 130-159 mg/dLHigh LDL: 160-189 mg/dLVery High LDL: greater than or equal to 190 mg/dL HDL Cholesterol 45 >40 mg/dL [facility] Comment:Desirable HDL: great er than 40 mg/dL Note: This HDL assay may give artificially low results in patients with liver disease. Blood 06/15/2024 9:58 AM EST 06/15/2024 11:35 AM EST us Justine Buenrostro MD LAB BLOOD ORDERABLES Fin al Result [facility] [address] [place] [phone] * Pap Smear (05/01/2024 9:18 AM EST) 05/01/2024 9:18 AM EST 05/01/2024 1:40 PM EST Narrative [facility] - 05/07/2024 10:13 AM EST ----- ------- Name: Klaudia Lopes Age/Sex: 63/F : 1960 Unit#: [id number] Attend Dr: Raghu Benz MD Re05/01/24 Status: DEP REF Location: HO.LNP Disch: ----- ------- SPEC : [id number] RECD: 05/01/24 STATUS: MAHAMED ENGEL NUM: [id number] DELANEY: 05/01/24 [facility] DR: Raghu Benz MD ENTERED: 05/01/24 SP TYPE: Pap Smr OTHR DR: Sharita Ferro CHIEF RISK OFFICER ORDERED: Pap Smear Interpretation Satisfactory for evaluation. Negative for intraepithelial lesion or malignancy. No endocervical cells seen. HPV High Risk: Negative HPV Genotyping 16: Negative HPV Genotyping 18: Negative Clinical Information LMP: Postmenopausal Previous PAP test: Three years ago, Unknown findings Material Received ThinPrep-Cervical Copies To: Sharita Ferro CHIEF RISK OFFICER [address] [facility] [place] [address] Raghu Benz MD [facility] Women's Services [address] [place], [place] [phone] ----- ------- Signed (signature on file) KJ Jerry (ASCP) 05/07/24 1013 ----- ------- END OF REPORT Generic External Data Provider LAB CYTOLOGY IAN WILSON Final Result Performing Organization Address [facility]/ZIP Co de Phone Number [facility] [address] [place] [address] [phone] * HPV mRNA E6/E7 w/Reflex to HPV Genotypes 16, 18/45 (05/01/2024 12:00 AM EST) Historical Provider LAB CYTOLOGY ORDERABLES F inal Result Performing Organization Address [facility]/ZIP Co de Phone Number [facility] [address] [place], [place] [phone] * Colonoscopy (03/11/2022 2:56 PM EDT) Colonoscopy Normal Normal Narrative Mine [place] - 03/11/2022 2:56 PM EDT Recommended 3 year follow up ( [facility]) unable to find path results updated per provider notes us Historical Provider HEALTH MAINTENANCE Edited Result - Final from Last 3 Months or Most Recently Relevant to Health Maintenance Insurance CARE Care Teams Senior Wind Energy Consultant Relationship Specialty Start Date End Date Justine Buenrostro MD [address] [place] [phone] PCP - General Internal Medicine 02/21/24
--- OUTSIDE RECORDS SUMMARY | 2025-05-29 20:02 | XMS_ITS | Encounter Summary ---
Author Organization [employer] Address [address] [facility] 7t [place] [address] Care Team Providers Care Aquarist Name Role Phone Sharita Ferro Primary Care Provider [phone] Justine Buenrostro MD Primary Care Provider + Reason for Visit * Reason Comments Med Refill Encounter Details Date Type Department Care Team (Late st Contact Info) Description 05/03/2023 Refill [facility]ED[facility] [address] [place] [address] Name, MD [place] [address] [place] [address] Social History Tobacco Use Types Packs/Day Years [...] documented as of this encounter Care Teams Aquarist Relationship Specialty Start Date End Date Sharita Ferro FNP [address] [place] [address] PCP - General Family Medicine 05/17/22 02/20/24 Justine Buenrostro MD [address] [place] [address] PCP - General Internal Medicine 02/21/24 documented as of this encounter
--- OUTSIDE RECORDS SUMMARY | 2025-05-29 20:02 | XMS_ITS | Encounter Summary ---
Author Organization [email or web address] Address [address] [facility] 7t [place] [address] Care Team Providers Care Commissioner Of Officials Name Role Phone Justine Buenrostro MD Primary Care Provider + Reason for Visit * Reason Comments Med Refill Encounter Details Date Type Department Care Team (Late st Contact Info) Description 01/03/2025 Refill [facility] [address] [place], [place] [phone] Justine Buenrostro MD [address] [place], [place] [phone] Social History Tobacco Use Types Packs/Day Years [...] documented as of this encounter Care Teams Commissioner Of Officials Relationship Specialty Start Date End Date Justine Buenrostro MD [address] [place] [phone] PCP - General Internal Medicine 02/21/24 documented as of this encounter
--- OUTSIDE RECORDS SUMMARY | 2025-05-29 20:02 | XMS_ITS | Encounter Summary ---
Author Organization [employer] Address [address] [facility] 7t [place] [address] Care Team Providers Care Process Coordinator Name Role Phone Sharita Ferro Primary Care Provider [phone] Justine Buenrostro MD Primary Care Provider + Encounter Details Date Type Department Care Team (Late st Contact Info) Description 12/01/2022 Abstract [facility] MEDICINE [address] [place] [address] Sharita Ferro FNP [address] [place] [address] Social History Tobacco Use Types Packs/Day Years [...] on file documented as of this encounter Procedures Procedure Name Priority Date/Time Associated Diagnosis Comments HM COLONOSCOPY Routine 03/11/2022 2:56 PM EDT documented in this encounter Results * Hm Colonoscopy (03/11/2022 2:56 PM EDT) Colonoscopy Normal Normal Narrative Mine [place] - 03/11/2022 2:56 PM EDT Recommended 3 year follow up ( [facility]) unable to find path results updated per provider notes us Historical Provider HEALTH MAINTENANCE Edited Result - Final documented in this encounter Visit Diagnoses Not on filedocumented in this encounter Additional Health Concerns Assessment Noted Time PHQ-9 Depression Total Score: 5 09/09/19 23 10:36 AM EDT documented as of this encounter Care Teams Process Coordinator Relationship Specialty Start Date End Date Sharita Ferro FNP [address] [place], [place] [phone] PCP - General Family Medicine 05/17/22 02/20/24 Justine Buenrostro MD [address] [place] [address] PCP - General Internal Medicine 02/21/24 documented as of this encounter
--- OUTSIDE RECORDS SUMMARY | 2025-05-29 20:03 | XMS_ITS | Encounter Summary ---
Author Organization [employer] Address [address] [facility] 7t [place] [address] Care Team Providers Care Director Of Outreach Name Role Phone Justine Buenrostro MD Primary Care Provider + Encounter Details Date Type Department Care Team ([facility] st Contact Info) Description 10/16/2024 Orders Only [facility] PEDS [address] [place], [place] [phone] Mine [place] Social History Tobacco Use Types [...] Provider LAB CYTOLOGY ORDERABLES F inal Result [facility] [address] [place] [phone] documented in this encounter Visit Diagnoses Not on filedocumented in this encounter Additional Health Concerns Assessment Noted Time PHQ-9 Depression Total Score: 8 09/15/19 25 11:03 AM EDT documented as of this encounter Care Teams Director Of Outreach Relationship Specialty Start Date End Date Justine Buenrostro MD [address] [place] [phone] PCP - General Internal Medicine 02/21/24 documented as of this encounter
--- OUTSIDE RECORDS SUMMARY | 2025-05-29 20:03 | XMS_ITS | Encounter Summary ---
Author Organization [employer] Address [address] [facility] 7t [place] [address] Care Team Providers Care Media Marketing Specialist Name Role Phone Grant Mcguire MD Primary Care Provider Sharita Wright Primary Care Provider [phone] Justine Buenrostro MD Primary Care Provider + Encounter Details Date Type Department Care Team (Latest Contact Info) Description 02/12/[address] [facility] CONVERSIONS Dental, Provider, DDS Social History Tobacco [...] on filedocumented in this encounter Care Teams Media Marketing Specialist Relationship Specialty Start Date End Date Grant Mcguire MD PCP - General Family Medicine 03/30/19 05/16/22 Sharita Ferro FNP [address] [place] [address] PCP - General Family Medicine 05/17/22 02/20/24 Justine Buenrostro MD [address] [place] [address] PCP - General Internal Medicine 02/21/24 documented as of this encounter
== END 2025-05-29 13:28 | disposition home or self-care (01) ==
LOC: HO.HGS 13:02
PROVIDERS: PCP Internal Medicine; Referring Provider Internal Medicine; Visit Provider Surgery
DX: M54.2 Cervicalgia (principal)
CPT/HCPCS: 99203

== ENCOUNTER → 2025-05-29 13:01 | Outpatient (BNVA) | payer MEDICARE, SELFPAY | PROVIDERS: PCP Internal Medicine; Referring Provider Internal Medicine; Visit Provider Surgery | DX: M54.2 Cervicalgia (principal) | CPT/HCPCS: 99202 ==